=== PATIENT | female | born 1990 | race Caucasian/White ===

== ENCOUNTER 2023-08-11 09:12 | Outpatient (AMB) | payer OTHER, SELFPAY ==
--- NOTE | 2023-08-11 09:25 | AM.OFFWIN_ITS ---
Intake Vital Signs 08/11/23 09:26 Height 5 ft Weight 149 lb 6 oz BMI 29.2 BP 142/96 H Blood Pressure Location Rt brachial Position Sitting Respiration 14 Pulse 117 H Pulse Source Pulse Oximeter Temp 97.8 F Temp Source Temporal Artery Scan Pulse Oximetry (%) 99 Intake Visit Reasons: High blood pressure Intake Note: Patient would like a script for lebatalol. Patient Tobacco Use Status: Never used Tobacco Nursing Home Admissions Director Required: No Accompanied by: Self / Same As Patient Allergies No Known Allergies Allergy (Verified 08/11/23 10:00) Medication List - Last Reconciled 08/11/23 by Joanie Arriaga, [employer] dextroamphetamine-amphetamine 30 mg 1 tab PO TID labetalol 100 mg PO BID Do you need a note to return to daycare/school/sports/work: No HPI HPI Comments History of Present Illness Details 33 y/o F pre-eclampsia w/ intermediate designer HTN Walk-in visit today for medication refills. Reports that she had a change in her insurance and has been out of care for a few months. She was maintained on labetalol 100 mg p.o. b.i.d. after the of her last child due to hypertension. She has been without this for 2-3 weeks. She has complaining of a headache and a whooshing sound in her ears. She denies any chest pain or swelling in her lower extremities. Does plan to become again in the future. No immediate plans. She also has been without her Adderall. She is taking very high doses of Adderall 30 mg t.i.d.. 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 social stressors - 2 small children, one with autism, going through seperation Plan Continue on labetalol 100 mg p.o. b.i.d. at this time. Could consider changing her medications to include something like clonidine which can help her mood as well as better control her blood pressure if she does not plan to become soon. Although she does have immediate plans to become labetalol would be the best choice for her at this time. In regards to her ADHD she does have a visit to establish care with me next week as a primary care patient. I did advise to her that her Adderall 30 mg t.i.d. was an extremely high dose and above the recommended amount. This will need to be reviewed. I have given her a one-month supply. I will refer her to the bridge program at the next office visit along with counseling. [facility] Social History Patient Tobacco Use Status: Never used Tobacco Review of Systems Const All systems reviewed & are unremarkable except as noted in HPI and below Physical Exam Vital Signs: Last Vital Signs Temp 97.8 F 08/11/23 09:26 Pulse 117 H 08/11/23 09:26 Resp 14 08/11/23 09:26 BP 142/96 H 08/11/23 09:26 Pulse Ox 99 08/11/23 09:26 BMI result Body Mass Index 29.2 Const Other: awake alert PERRLA MMM RRR LS CTAB No edema BLE Assessment & Plan Assessment & Plan (1) ADHD: Code(s): F90.9 - Attention-deficit hyperactivity disorder, unspecified type Qualifiers: Attention deficit-hyperactivity disorder type: predominantly inattentive Qualified Code(s): F90.0 - Attention-deficit hyperactivity disorder, predominantly inattentive type (2) HTN (hypertension): Code(s): I10 - Essential (primary) hypertension Qualifiers: Hypertension type: primary hypertension Qualified Code(s): I10 - Essential (primary) hypertension Plan This note is constructed using voice recognition software. While every effort has been made to ensure accuracy in insurance sales executive, still errors may have been included Sometimes, these errors may affect the content or meaning of the given sentence . Total time spent caring for the patient today was 30 minutes. This includes time spent before the visit reviewing the chart, time spent during the visit, and time spent after the visit on documentation Medications: New labetalol 100 mg PO BID 60 tabs 0RF dextroamphetamine-amphetamine 30 mg 1 tab PO TID 90 tabs 0RF Patient Instructions: Plan Continue on labetalol 100 mg p.o. b.i.d. at this time. Could consider changing her medications to include something like clonidine which can help her mood as well as better control her blood pressure if she does not plan to become soon. Although she does have immediate plans to become labetalol would be the best choice for her at this time. In regards to her ADHD she does have a visit to establish care with me next week as a primary care patient. I did advise to her that her Adderall 30 mg t.i.d. was an extremely high dose and above the recommended amount. This will need to be reviewed. I have given her a one-month supply. I will refer her to the bridge program at the next office visit along with counseling. Coding Level of Care Code New Pt Level 3 (92226) Diagnoses Attention deficit hyperactivity disorder (ADHD), predominantly inattentive type F90.0 Attention deficit-hyperactivity disorder type: predominantly inattentive Primary hypertension I10 Hypertension type: primary hypertension
[2023-08-11 09:26] VITALS: BP 142/96; PULSE 117; RESP 14; TEMP 36.6; O2SAT 99; BMI 29.2
== END 2023-08-11 11:02 | disposition home or self-care (01) ==
PROVIDERS: Visit Provider Nurse Practitioner Family
DX: F90.0 Attention-deficit hyperactivity disorder, predominantly inattentive type (principal); I10 Essential (primary) hypertension
CPT/HCPCS: 99203

== ENCOUNTER 2023-08-16 11:53 | Outpatient (AMB) | payer OTHER, SELFPAY ==
--- NOTE | 2023-08-16 12:10 | A.OFFPC_ITS ---
Vital Signs 08/16/23 12:13 Height 4 ft 10.9 in Weight 150 lb 3 oz BMI 30.4 BP 118/88 Blood Pressure Location Lt brachial Position Sitting Pulse 72 Pulse Source Pulse Oximeter Temp 98.7 F Temp Source Oral Pulse Oximetry (%) 99 Oxygen Delivery Method Room Air Intake Visit Reasons: Establish Care Intake Note: New patient visit [place] [place] Manager Required: No Allergies No Known Allergies Allergy (Verified 08/16/23 12:10) Medication List - Last Reconciled 08/16/23 by Joanie Arriaga, TEXTILE PIN WORKER- dextroamphetamine-amphetamine 30 mg 1 tab PO TID labetalol 100 mg PO BID Tobacco use date assessed: 08/16/23 Dental Screening Dental Screen Date: 08/16/23 Did you have a dental visit in the last 12 months?: Yes Did you have a dental problem in the last 6 months where you did not have access to dental care?: No Was dental information given to patient?: Patient has dentist HPI HPI Comments History of Present Illness Details 33 y/o 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 Here today to establish care. Chronic condition of hypertension is currently well controlled on labetalol. Blood pressure is at goal. Denies any cardiac complaints. Continue labetalol 100 mg p.o. b.i.d. Overall she has generalized anxiety with some mixed depression in the setting of going through a separation. She has appt with advocate tomorrow for abuse prevention/harassment order. She does feel safe at the current time. Is not in counseling at this time. Did do counseling in the past. Willing to pursue. Referral today to [facility] Has not bought any in any medications to help her anxiety or depression in the past. She is willing to entertain this. Start Wellbutrin XL 150 mg p.o. daily. The goal of this would be to help control her anxiety, depression as well as her ADHD. Titrate to effect. In regards to her ADHD she is currently maintained on Adderall 30 mg p.o. t.i.d.. This came from her previous PCP. She was educated at the last visit as well as today that this exceed the maximum daily limit of 60 mg per day. The goal will be to titrate her down we will continue to manage her symptoms. Start Adderall XL 30 mg take 2 tablets p.o. daily. Adderall IR 10 mg p.o. daily p.r.n. for breakthrough symptoms. Finally she complains of a painless, non itchy lesion on her anus. Has been present for at least 3 months. There has been no home treatments. Admits some constipation but this is mild and without bleeding. Refer to general surgery for removal of hemorrhoid. Can not remember her last period and is requesting her urine test. This was negative today. Also requesting screening labs. These labs were done and reviewed today and within normal limits. Plan Refer to general surgery for evaluation and treatment of external hemorrhoid Start bupropion XL 150 mg p.o. q.day to help with anxiety and ADHD. Refer to counseling Cont labetolol Start Adderall XL 30 mg take 2 tablets p.o. daily. Adderall IR 10 mg p.o. daily p.r.n. for breakthrough symptoms. Return to office in 6 weeks to follow up on labs and to assess effectiveness of med changes [facility] Medical History Depression Anxiety Headache Thyroid disease Diabetes Family History Mother Substance use FH: mental illness HTN (hypertension) Hypercholesteremia Thyroid disorder Alcoholism Sister Substance use FH: mental illness Father HTN (hypertension) Alcoholism Paternal Grandmother Lung cancer Social History Housing: House Patient Tobacco Use Status: Never used Tobacco e-Cigarette/Vaping Use: Never Used Second Hand Smoke Exposure: No service: Yes Current occupational status: employed 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 1. Little interest or pleasure in doing things: several days 2. Feeling down, depressed, or hopeless: several days 3. Trouble falling or staying asleep, or sleeping too much: not at all 4. Feeling tired or having little energy: more than half the days 5. Poor appetite or overeating: not at all 6. Feeling bad about yourself - or that you are a failure or have let yourself or your family down: not at all 7. Trouble concentrating on things, such as reading the newspaper or watching television: not at all 8. Moving or speaking so slowly that other people could have noticed. Or the opposite - being so fidgety or restless that you have been moving around a lot more than usual: not at all 9. Thoughts that you would be better off or of hurting yourself in some way: not at all Total score: 4 Depression Screening Interpretation: Positive Depression Screening Follow-up: Existing condition and New Medication prescribed Depression Screening Done: Yes 05353 - PHQ-9 Billing: Yes Source: Developed by Drs. Thompson Zamora, Jo Meneses, Casey Alford and colleagues, with an educational clinton from [employer]. Thrive Questionnaire Date Thrive assessed: 08/16/23 I am a: Patient What is your living situation today?: I have a steady place to live Within the past 12 months, did the food you bought not last and you didn't have the money to get more?: Never true Within the past 12 months, did you worry whether your food would run out before you got money to buy more?: Never true Do you have trouble paying for medicines?: No Do you have trouble getting transportation to medical appointments?: No Do you have trouble paying your heating and electricity bill?: No Do you have trouble taking care of your child, family member or friend?: No Do you have trouble with day-to-day activities such as bathing, preparing meals, shopping, managing finances, etc.?: No Are you currently unemployed and looking for a job?: No Are you interested in more education?: No Please select the resources that you would like help with: None Currently or been in a relationship where the following occur: no concerns reported THRIVE Score: 0 AUDIT C Alcohol Use Questionnaire (AUDIT-C) 1. How often do you have a drink containing alcohol?: 2-3 times a week 2. How many drinks containing alcohol do you have on a typical day when you are drinking?: 1 or 2 3. How often do you have six or more drinks on one occasion?: Never Total Score: 3 Score Reviewed/Action Taken: Yes SAROJ-7 AMB Questionnaire SAROJ-7 Date SAROJ - 7 assessed: 08/16/23 Feeling nervous, anxious, or on edge: 1 = Several days Not being able to stop or control worryin = Not at all Worrying too much about different things: 0 = Not at all Trouble relaxin = Several days Being so restless that it is hard to sit still: 1 = Several days Becoming easily annoyed or irritable: 1 = Several days Feeling afraid as if something awful might happen: 1 = Several days Total SAROJ-7 score (0-4 normal; 5-9 mild; 10-14 moderate; 15-21 severe): 5 Source: Developed by Drs. Thompson Zamora, Jo Meneses, Casey Alford and colleagues, with an educational clinton from [employer]. SAROJ-7 Assessment Billing SAROJ-7 Assessment Tool: SAROJ-7 Assessment 68683 Review of Systems Const All systems reviewed & are unremarkable except as noted in HPI and below Physical exam (Primary Care) Vital Signs: Last Vital Signs Temp 98.7 F 08/16/23 12:13 Pulse 72 08/16/23 12:13 BP 118/88 08/16/23 12:13 Pulse Ox 99 08/16/23 12:13 Oxygen Delivery Method Room Air 08/16/23 12:13 BMI result Body Mass Index 30.4 BMI Assessment/Plan discussion: High BMI High, discussed plan: lifestyle Tobacco/Smoking Status: Tobacco use Status Tobacco use date assessed 08/16/23 08/16/23 12:18 Patient Tobacco Use Status Never used Tobacco 08/16/23 12:11 e-Cigarette/Vaping Use Never Used 08/16/23 12:18 PHQ-9: PHQ-9 Score PHQ-9: Total score 4 08/16/23 12:20 Depression Screening Interpretation: Positive Depression Screening Follow-up: Existing condition and New Medication prescribed Thrive Assessment: Date of Thrive Assessment Date Thrive assessed 08/16/23 08/16/23 12:18 Currently or been in a relationship where the following occur: no concerns reported Const Other: Awake alert oriented Pleasant and cooperative Regular rate and rhythm Lung sounds clear to auscultation bilat 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 Non thrombosed external hemorrhoid No edema bilateral lower extremities Assessment and Plan Assessment & Plan (1) SAROJ (generalized anxiety disorder): Code(s): F41.1 - Generalized anxiety disorder (2) ADHD: Code(s): F90.9 - Attention-deficit hyperactivity disorder, unspecified type Qualifiers: Attention deficit-hyperactivity disorder type: predominantly inattentive Qualified Code(s): F90.0 - Attention-deficit hyperactivity disorder, predominantly inattentive type (3) HTN (hypertension): Code(s): I10 - Essential (primary) hypertension Qualifiers: Hypertension type: primary hypertension Qualified Code(s): I10 - Essential (primary) hypertension (4) Amenorrhea: Code(s): N91.2 - Amenorrhea, unspecified (5) Hemorrhoid: Code(s): K64.9 - Unspecified hemorrhoids Qualifiers: Hemorrhoid type: first degree Qualified Code(s): K64.0 - First degree hemorrhoids (6) Obesity (BMI 30.0-34.9): Code(s): E66.9 - Obesity, unspecified Plan This note is constructed using voice recognition software. While every effort has been made to ensure accuracy in flight test supervisor, still errors may have been included Sometimes, these errors may affect the content or meaning of the given sentence . Total time spent caring for the patient today was 45 minutes. This includes time spent before the visit reviewing the chart, time spent during the visit, and time spent after the visit on documentation Orders: Orders Comprehensive Met. Panel Today F90.0 - Attention-deficit hyperactivity disorder, predominantly inattentive type, I10 - Essential (primary) hypertension, N91.2 - Amenorrhea, unspecified Hemoglobin A1c Today F90.0 - Attention-deficit hyperactivity disorder, predominantly inattentive type, I10 - Essential (primary) hypertension, N91.2 - Amenorrhea, unspecified LDL Cholesterol Direct Today F90.0 - Attention-deficit hyperactivity disorder, predominantly inattentive type, I10 - Essential (primary) hypertension, N91.2 - Amenorrhea, unspecified TSH reflex Free T4 Today F90.0 - Attention-deficit hyperactivity disorder, predominantly inattentive type, I10 - Essential (primary) hypertension, N91.2 - Amenorrhea, unspecified IRON PROFILE Today F90.0 - Attention-deficit hyperactivity disorder, predominantly inattentive type, I10 - Essential (primary) hypertension, N91.2 - Amenorrhea, unspecified Vitamin B12 and Folate Today F90.0 - Attention-deficit hyperactivity disorder, predominantly inattentive type, I10 - Essential (primary) hypertension, N91.2 - Amenorrhea, unspecified Complete Blood Count no Diff Today F90.0 - Attention-deficit hyperactivity disorder, predominantly inattentive type, I10 - Essential (primary) hypertension, N91.2 - Amenorrhea, unspecified HCG Quantitative Today F90.0 - Attention-deficit hyperactivity disorder, predominantly inattentive type, I10 - Essential (primary) hypertension, N91.2 - Amenorrhea, unspecified Referrals Counseling Referral F41.1 - Generalized anxiety disorder General Surgery Referral K64.9 - Unspecified hemorrhoids Medications: New dextroamphetamine-amphetamine 30 mg ER (Adderall XR) Partial Fill upon patient request. 60 mg (2 x 30 mg) PO DAILY 60 caps 0RF bupropion HCl XL (Wellbutrin XL) 150 mg PO QAM 30 tabs 1RF dextroamphetamine-amphetamine 10 mg (Adderall) Use PRN for breakthrough ADHD sx. Partial Fill upon patient request. 10 mg PO DAILY PRN 30 tabs 0RF as directed. Discontinued dextroamphetamine-amphetamine 30 mg Discontinued Reason: Duplicate 1 tab PO TID 90 tabs 0RF Patient Instructions: Patient is aware they are being prescribed a controlled substance. They were educated that this medication does require routine monthly office visits to monitor weight, blood pressure, heart rate and to screen for any signs of abuse or misuse. They were educated that they may be subject to random pill counts and/or U tox screenings. The prescription drug monitoring program we will be monitored at each visit to further screen for signs of abuse or misuse to include filling prescriptions at other physician's offices. The patient should maintain prescription refills of the same local pharmacy and advised the provider of any changes immediately. If at any time there is a concern for abuse or misuse or if there are any signs of side effects such as elevated blood pressure, elevated heart rate or weight loss patient is made aware that this medication will be discontinued. The patient is aware of the above and is willing to proceed. Plan Refer to general surgery for evaluation and treatment of external hemorrhoid Start bupropion XL 150 mg p.o. q.day to help with anxiety and ADHD. Refer to counseling Cont labetolol Start Adderall XL 30 mg take 2 tablets p.o. daily. Adderall IR 10 mg p.o. daily p.r.n. for breakthrough symptoms. Return to office in 6 weeks to follow up on labs and to assess effectiveness of med changes Walk-In Care (Urgent Care): We Make it Easy Walk-in for urgent medical issues such as: ? Seasonal Allergies ? Insect Bites ? Cough ? Diarrhea ? Acute Asthma Attacks ? Back, Knee or Joint Pain ? Ear Infection ? Fever without a Rash ? Headaches ? Nausea ? [place] [facility], Rash or Skin Irritation ? Sore Throat ? Sports Physicals ? Vomiting Most insurances are accepted. Patients do not need to be part of the [facility] to seek care at the walk-in clinic. Locations [address] [place] [address] , [place] [address] ? [phone] [facility] Walk-In Care in [place] provides services to ages 18 and over. Open Monday-Monday: 8 a.m. to 5 p.m. and Monday: 9 a.m. to 3 p.m.* *Hours may vary due to staffing availability. To confirm Walk-In Care hours in [place], please call [phone]. [address] [place] [address] ? [phone] [facility] Walk-In Care in [place] provides services to ages 12 and over. Open Monday-Monday: 8 a.m. to 5 p.m. Hours may vary due to staffing availability. To confirm Walk-In Care hours in [place], please call [phone]. LABORATORY SERVICES: [facility] Lab ? Primary Location [address] [place] [address] Monday through Monday 6:00 AM ? 5:00 PM Monday 7:00 AM ? 11:00 AM* [phone] The [facility] Lab is centrally located near the front entrance of the [facility] for easy outpatient access. Convenient parking is provided for outpatients. *Hours may vary due to staffing availability. To confirm Laboratory hours for any location, please call [phone]. Offsite Location For your convenience, we offer offsite laboratory draw stations at the following locations: [address] [place] [address] ? [facility] [address], [address], [place] Monday through Monday 7:30 AM ? 1:00 PM* [phone] *Hours may vary due to staffing availability. To confirm Laboratory hours for any location, please call [phone]. [place] ? [facility] [address] [facility], [place] Monday through Monday 6:00 AM ? 3:30 PM* Monday 6:30 AM ? 3 PM* [phone] *Hours may vary due to staffing availability. To confirm Laboratory hours for any location, please call [phone]. [address] [facility] Monday through Monday 7:30 AM ? 4:00 PM* [phone] *Hours may vary due to staffing availability. To confirm Laboratory hours for any location, please call [phone] [place] [address] Monday through 9:00 AM ? 4:00 PM* *Hours may vary due to staffing availability. To confirm Laboratory hours for any location, please call [phone]. Appointments are not necessary. Walk-ins are welcome. Like all the departments throughout the [facility], our Lab undergoes frequent reviews to ensure the quality and accuracy of test results, and our staff takes special pride in its status as a nationally accredited facility. Patient Portal: ONE PATIENT. ONE RECORD. BETTER CARE. [facility] has a fully integrated, cutting- edge mobile electronic health information system that has revolutionized the way we care for our patients and manage our organization. This system improves communication and coordination enabling us to provide safe, higher-quality care, and an overall positive experience for staff and patients. Our first priority, as always, is to deliver the highest quality care possible. The system is running in the background supporting that priority. This portal is for all [facility] services and practices. If you are experiencing any technical difficulties with enrolling or logging into the Patient Portal please complete the [facility] Patient Portal Technical Support Form. [facility] now offers a new secure on-line interactive tool for patients to review their health information ? ?Patient Portal. This interactive web portal will enable patients and their families to take an active role in their care by providing easy, secure access to their health information via the internet. The Patient Portal provides patients with instant access to their health information, including laboratory results, medications, allergies, demographic information, visit history, and more. In addition to managing their own care, parents and health care proxies with authorized consent will appreciate the ability to access the records of those individuals for whom they provide care. Please note: if you wish to gain access (Proxy) to another patient?s portal, you will be required to come to the Medical Records Department in person at [facility]. Both the patient giving proxy access and the proxy will need to provide photo identification and complete the appropriate authorization. The Patient Portal also allows track their appointments online. The [facility] Patient Portal also saves patients time by allowing them to submit updates to their demographic and contact information prior to their visits. Portal email notifications will also alert patients to any new activity on their portal, such as test results and new appointments. In order to initially enroll in the [facility] Patient Portal, you will need to enter some required information including the following: * your [facility] Medical Record number * your personal home email address * name * date of Please note: In order to enroll in the [facility] Patient Portal, we need to have your email address on file in your electronic medical record. ?The email address needs to be specific for one person (yourself) in order for your Portal enrollment to be successful. ?You can update your email address in person with our Registration staff when you are registering for a hospital visit. ?Otherwise, you will need to come to the Health Information Management (Medical Records) Department at [facility]. ?We are open from Monday ? Monday from 7:30 a.m. ? 4:30 p.m. ?You will be required to present a photo id. Once you have successfully enrolled in the Patient Portal, you will receive a one-time user id and password for the Portal, sent to your email address. ?This will allow you to log into the Patient Portal within 99 hrs and reset your own logon id and password, and define personal security questions. ?Once your permanent login and password have been set, you can log into the [facility] Patient Portal at any time via the blue button above or from the Portal Logon button on any page of the [facility] website. [facility] encourage all of our patients to enroll in Patient Portal as it presents a valuable opportunity for patients and their families to actively participate in their care and stay healthy Welcome to [facility]. ?We look forward to working with you. Coding Level of Care Code Est Pt Level 5 (49998) Diagnoses SAROJ (generalized anxiety disorder) F41.1 Attention deficit hyperactivity disorder (ADHD), predominantly inattentive type F90.0 Attention deficit-hyperactivity disorder type: predominantly inattentive Primary hypertension I10 Hypertension type: primary hypertension Amenorrhea N91.2 Grade I hemorrhoids K64.0 Hemorrhoid type: first degree Obesity (BMI 30.0-34.9) E66.9 Additional Codes SAROJ-7 Assessment Billing - SAROJ-7 Assessment Tool: SAROJ-7 Assessment 19182 ([id number])
[2023-08-16 12:13] VITALS: BP 118/88; PULSE 72; TEMP 37.1; O2SAT 99; BMI 30.4
== END 2023-08-16 13:00 | disposition home or self-care (01) ==
PROVIDERS: Visit Provider Nurse Practitioner Family
DX: I10 Essential (primary) hypertension (principal); F41.1 Generalized anxiety disorder; Z68.30 Body mass index [BMI] 30.0-30.9, adult; E66.9 Obesity, unspecified; F90.0 Attention-deficit hyperactivity disorder, predominantly inattentive type; N91.2 Amenorrhea, unspecified; K64.0 First degree hemorrhoids
CPT/HCPCS: 96127; 99215

== ENCOUNTER 2023-08-16 12:50 | Outpatient (REF) | payer OTHER, SELFPAY ==
[2023-08-16 13:56] LABS: Hematocrit 38.5 % (37.0-47.0); Hemoglobin 12.9 g/dl (12.0-16.0); Mean Corpuscular HGB Conc 33.5 g/dl (31.0-35.0); Mean Corpuscular Hemoglobin 30.4 pg (27.0-33.0); Mean Corpuscular Volume 90.8 fL (80.0-98.0); Mean Platelet Volume 10.2 fL (9.4-12.3); Platelet Count 334 X10*3/uL (160-400); Red Blood Count 4.24 X10*6/uL (4.20-5.50); Red Cell Distribution Width 13.2 % (11.0-16.0); White Blood Count 9.1 X10*3/uL (4.8-10.8)
[2023-08-16 14:03] LABS: Estimated Average Glucose 103 mg/dL; Hemoglobin A1c % 5.2 % (<6.0)
[2023-08-16 14:25] LABS: Alanine Aminotransferase 31 U/L (0-31); Albumin Level 4.3 g/dL (3.5-5.0); Alkaline Phosphatase 60 U/L (39-117); Anion Gap 8 (12-20); Aspartate Amino Transferase 18 U/L (5-31); Bilirubin Total 0.2 mg/dL (0.0-1.0); Blood Urea Nitrogen 10 mg/dL (9-16); Calcium 9.5 mg/dL (8.4-10.2); Carbon Dioxide 29 mmol/L (22-29); Chloride 107 mmol/L (96-108); Estimated Glomerular Filt Rate > 60; Glucose Random 83 mg/dL (60-115); Iron 67 mcg/dL (30-160); Percent Iron Saturation 22 % (15-50); Potassium 3.8 mmol/L (3.3-5.1); Sodium 140 mmol/L (135-145); Total Iron Binding Capacity 299 mcg/dL (228-428); Total Protein 7.2 g/dL (6.5-8.0); Unsaturated Iron Binding 232 ug/dL
[2023-08-16 14:39] LABS: HCG Quantitative < 2 mIU/mL; TSH reflex Free T4 1.39 uIU/mL (0.32-4.0)
[2023-08-16 14:53] LABS: Folate 10.6 ng/mL (> or = 4.0); Vitamin B12 492 pg/mL (200-900)
[2023-08-17 13:43] LABS: LDL Cholesterol Direct 116 mg/dL (<100)
== END 2023-08-16 12:51 | disposition home or self-care (01) ==
LOC: HO.WFDLDS 12:50
PROVIDERS: Visit Provider Nurse Practitioner Family
DX: I10 Essential (primary) hypertension (principal); F90.0 Attention-deficit hyperactivity disorder, predominantly inattentive type; N91.2 Amenorrhea, unspecified
CPT/HCPCS: 36415; 80053; 82607; 82746; 83036; 83540; 83721; 84443; 84702; 85027

== ENCOUNTER 2023-09-08 09:44 | Outpatient (AMB) | payer OTHER, SELFPAY ==
--- NOTE | 2023-09-08 09:46 | MHC.OFFVIS ---
Vital Signs 09/08/23 09:58 Height 5 ft Weight 153 lb BMI 29.9 Pulse 80 Intake Visit Reasons: Hemorrhoids Intake Note: Patient is seen in office for evaluation and treatment of hemorrhoids. 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 She reports the hemorrhoid started followed the delivery of her child in 2019. Since this time she has felt a lump with occasional bleeding and discomfort which seems to worsen with constipation. She is used [id number] hemorrhoidal creams and witch with minimal improvement. She has also been on a stool softener which does seem to help. She denies a previous history of hemorrhoidal surgery. She would like to have the hemorrhoids removed because they are causing discomfort. [facility] Medical History Depression Anxiety Headache Thyroid disease Diabetes Surgical History H/O dilation and curettage (~2016) Family History Mother Substance use FH: mental illness HTN (hypertension) Hypercholesteremia Thyroid disorder Alcoholism Sister Substance use FH: mental illness Father HTN (hypertension) Alcoholism Paternal Grandmother Lung cancer Social History Housing: House Patient Tobacco Use Status: Never used Tobacco e-Cigarette/Vaping Use: Never Used Second Hand Smoke Exposure: No service: Yes Current occupational status: employed 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 Current occupational exposures/hazards: Yes Cognitive needs: No Hearing needs: No Vision needs: Yes (contacts) Review of Systems Const All systems reviewed & are unremarkable except as noted in HPI and below Physical Exam Vital Signs: Last Vital Signs Pulse 80 09/08/23 09:58 BMI result Body Mass Index 29.9 Const General: cooperative and no acute distress Nutritional Appearance: well nourished Orientation/consciousness: patient oriented x3 Limitations: no limitations HEENT Head: Yes normocephalic and Yes atraumatic Ears: hearing grossly normal bilaterally Resp Effort & Inspection: normal respiratory effort, no audible wheezes, no cough and no respiratory distress Cardio Jugular venous distension: no JVD GI Inspection: Yes normal to inspection Back/Spine/Pelvis Back/spine/pelvis image: 1. anterior hemorrhoid noted with several prolapsing internal hemorrhoids at the 6, 9 and 3 o'clock location. Skin Other: Warm, dry, no rash Neuro General: patient oriented x3 Extrem General: Yes no clubbing, cyanosis or edema Assessment & Plan Assessment & Plan (1) Hemorrhoid: Code(s): K64.9 - Unspecified hemorrhoids Category: Medical Qualifiers: Hemorrhoid type: first degree Qualified Code(s): K64.0 - First degree hemorrhoids Plan 33-year-old female patient presenting for evaluation of persistent hemorrhoid which not respond to [id number]-fwv-reoebah agents. On examination, she is found to have an external skin tag but also several prolapsing internal hemorrhoids (grade 2-3). There is no evidence of bleeding at this time. She is requested hemorrhoidectomy and after discussion of the procedure, risks, and alternatives including the possibility of recurrent hemorrhoids, she consents to the surgery. Medications: Discontinued bupropion HCl XL (Wellbutrin XL) Discontinued Reason: Patient no longer taking 150 mg PO QAM 30 tabs 1RF Coding Level of Care Code New Pt Level 4 (86330) Diagnoses Grade I hemorrhoids K64.0 Hemorrhoid type: first degree
[2023-09-08 09:58] VITALS: PULSE 80; BMI 29.9
== END 2023-09-08 10:23 | disposition home or self-care (01) ==
PROVIDERS: PCP Nurse Practitioner Family; Referring Provider Nurse Practitioner Family; Visit Provider Surgery
DX: K64.2 Third degree hemorrhoids (principal)
CPT/HCPCS: 99204

== ENCOUNTER → 2023-09-08 09:44 | Outpatient (BNVA) | payer OTHER, SELFPAY | PROVIDERS: PCP Nurse Practitioner Family; Referring Provider Nurse Practitioner Family; Visit Provider Surgery | DX: K64.0 First degree hemorrhoids (principal) | CPT/HCPCS: 99202 ==

== ENCOUNTER 2023-09-29 09:15 | Outpatient (AMB) | payer OTHER, SELFPAY ==
--- NOTE | 2023-09-29 09:33 | MHC.OFFWIV ---
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 Start Wellbutrin XL 150 mg p.o. daily. The goal of this would be to help control her anxiety, depression as well as her ADHD. Titrate to effect. tart Adderall XL 30 mg take 2 tablets p.o. daily. Adderall IR 10 mg p.o. daily p.r.n. for breakthrough symptoms. 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 Non thrombosed external hemorrhoid No edema bilateral lower extremities Plan Refer to general surgery for evaluation and treatment of external hemorrhoid Start bupropion XL 150 mg p.o. q.day to help with anxiety and ADHD. Refer to counseling Cont labetolol Start Adderall XL 30 mg take 2 tablets p.o. daily. Adderall IR 10 mg p.o. daily p.r.n. for breakthrough symptoms. Return to office in 6 weeks to follow up on labs and to assess effectiveness of med changes [facility] Medical History Depression Anxiety Headache Thyroid disease Diabetes Surgical History H/O dilation and curettage (~2017) Family History Mother Substance use FH: mental illness HTN (hypertension) Hypercholesteremia Thyroid disorder Alcoholism Sister Substance use FH: mental illness Father HTN (hypertension) Alcoholism Paternal Grandmother Lung cancer Social History Housing: House Patient Tobacco Use Status: Never used Tobacco e-Cigarette/Vaping Use: Never Used Second Hand Smoke Exposure: No service: Yes Current occupational status: employed 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
[2023-09-29 09:37] VITALS: BP 140/90; PULSE 64; O2SAT 98; BMI 29.3
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
== END 2023-09-29 10:21 | disposition home or self-care (01) ==
PROVIDERS: PCP Nurse Practitioner Family; Visit Provider Nurse Practitioner Family
DX: I10 Essential (primary) hypertension (principal); F90.0 Attention-deficit hyperactivity disorder, predominantly inattentive type; Z02.83 Encounter for blood-alcohol and blood-drug test; F41.1 Generalized anxiety disorder
CPT/HCPCS: 99215; 99417; G2211

== ENCOUNTER 2023-09-29 10:41 | Outpatient (REF) | payer OTHER, SELFPAY ==
[2023-09-29 14:31] LABS: Amphetamine Screen Urine POSITIVE (Not Detect); Barbiturates, Urine Not Detected (Not Detect); Benzodiazepines Screen Urine Not Detected (Not Detect); Buprenorphine Scr Not Detected (Not Detect); Cannabinoid Screen Urine Not Detected (Not Detect); Cocaine Screen Urine Not Detected (Not Detect); Fentanyl, urine Not Detected (Not Detect); Methadone Screen, Urine Not Detected (Not Detect); Opiate Screen Urine Not Detected (Not Detect); Oxycodone Screen Urine Not Detected (Not Detect); Phencyclidine Screen Urine Not Detected (Not Detect)
[2023-10-02 15:11] LABS: Methamphetamine, Urine GC/MS NEGATIVE
== END 2023-09-29 10:42 | disposition home or self-care (01) ==
LOC: HO.WFDLDS 10:41
PROVIDERS: Visit Provider Nurse Practitioner Family
DX: Z02.83 Encounter for blood-alcohol and blood-drug test (principal); F90.0 Attention-deficit hyperactivity disorder, predominantly inattentive type
CPT/HCPCS: 80307; 80324; G0480

== ENCOUNTER 2023-11-10 08:26 | Outpatient (AMB) | payer OTHER, SELFPAY ==
--- NOTE | 2023-11-10 08:29 | A.OFFPC_ITS ---
Vital Signs 11/10/23 08:31 Height 5 ft Weight 147 lb 4 oz BMI 28.8 BP 138/78 Blood Pressure Location Rt brachial Position Sitting Respiration 15 Pulse 75 Pulse Source Pulse Oximeter Pulse Oximetry (%) 100 Oxygen Delivery Method Room Air Intake Visit Reasons: 6 WEEKS 30 MIN FU HTN ADHD Intake Note: routine follow up on htn and adhd Allergies No Known Allergies Allergy (Verified 11/10/23 08:31) Medication List - Last Reconciled 11/10/23 by YEN PaezP-BC dextroamphetamine-amphetamine 10 mg (Adderall) 10 mg PO DAILY PRN dextroamphetamine-amphetamine 30 mg ER (Adderall XR) 60 mg (2 x 30 mg) PO DAILY labetalol 150 mg (1.5 x 100 mg) PO BID 90 days Tobacco use date assessed: 08/16/23 Dental Screening Dental Screen Date: 08/16/23 HPI HPI Comments History of Present Illness Details 33 y/o F pre-eclampsia w/ emt intermediate HTN, ADHD, SAROJ Social: has son with autism, 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 Here today to fu on ADHD and HTN HTN is improved, 140-155 SBP in the evening, 120-130 in the morning. Currently taking labetolol 200mg in the AM, 100mg before work and 100mg at be dtime but if not working taking 200mg at bedtime total daily dose 400mg Denies chest pain, sob, swelling in lower ext. Denies palps. Knows BP is high when she gets a headache and hears and feels wooshes, flushed and warm. Sometimes has blurred vision. Reports these episodes are occurring less often after the medication increase, it was QD before this. Had renal US in the past but has never had an Echo. Was on lisinopril 2.5 mg post (1-2 years after of son) with + effect. Not in current relationship, not on control. Got on OCP & IUD. Feels lousy on control, declines today. Will be starting counseling 11/22/23 @ [facility] Counseling ADHD - never did start the XL, stating it was never avail. [employer] does not show claim hx for this. She cont to take IR 30mg TID. She was advised to call all the pharmacies to see if they had this medication. She reports that local pharmacies do not have the extended release version of Adderall. Reviewed with her today the difficulties in prescribe his medications. Medication has been sent to the wrong pharmacy. Request for prior authorization several times even though the prior authorization were active. Medication unavailability. And finally the high dose of Adderall. Discuss this with her at length today. She is willing to have a consultation with the adult bridge program for medication management to see if we can optimize her medication and get her on a lower dose of stimulants all well controlled her ADHD symptoms. 08/2023 PCP records from [facility] reviewed, only note is she was on losartan in the past; she was on ativan and trazadone; has tried ritalin w/o effect. psych consult rec reduce adderal to60mg from 90mg and refer back to psych if tachy or HTN Exam: Awake alert oriented Pleasant and cooperative Regular rate and rhythm Lung sounds clear to auscultation bilat No edema bilateral lower extremities Plan Refer to the adult bridge program for help with further prescribing of her ADHD medications. At this time discontinue the Adderall 30 mg ER as it is not available and she has had lots of insurance barriers to even getting the medication. I have sent in Adderall immediate release 20 mg PO TID. I am aware that this is a high dose. She has been maintained on a very high dose of Adderall. Consultation with the outpatient bridge program we will be a ppreciated to help get her down to a lower dose. Check an echocardiogram to look for hypertensive heart disease given her uncontrolled blood pressure. Her blood pressure is controlled with the use of labetalol 200 mg 2 times per day, can titrate to a daily max of 2400mg/day. Once again holding off on adding a medications for her blood pressure as she does plan to conceive in the future. I would like to see her back in 1 month for routine follow up, sooner as needed. I did advise her that if she is being followed by the adult bridge program for the consultative services we can potentially move this visit out a little bit. This note is constructed using voice recognition software. While every effort has been made to ensure accuracy in software technical lead, still errors may have been included Sometimes, these errors may affect the content or meaning of the given sentence . Total time spent caring for the patient today was 45 minutes. This includes time spent before the visit reviewing the chart, time spent during the visit, and time spent after the visit on documentation [facility] Medical History (Updated 10/02/23 @ 07:42 by Joanie Arriaga [facility]) Depression Anxiety Headache Thyroid disease Surgical History H/O dilation and curettage (~2017) Family History Mother Substance use FH: mental illness HTN (hypertension) Hypercholesteremia Thyroid disorder Alcoholism Sister Substance use FH: mental illness Father HTN (hypertension) Alcoholism Paternal Grandmother Lung cancer Social History Housing: House Patient Tobacco Use Status: Never used Tobacco e-Cigarette/Vaping Use: Never Used Second Hand Smoke Exposure: No service: Yes Current occupational status: employed 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 1. Little interest or pleasure in doing things: several days 2. Feeling down, depressed, or hopeless: several days 3. Trouble falling or staying asleep, or sleeping too much: several days 4. Feeling tired or having little energy: several days 5. Poor appetite or overeating: more than half the days 6. Feeling bad about yourself - or that you are a failure or have let yourself or your family down: several days 7. Trouble concentrating on things, such as reading the newspaper or watching television: several days 8. Moving or speaking so slowly that other people could have noticed. Or the opposite - being so fidgety or restless that you have been moving around a lot more than usual: not at all 9. Thoughts that you would be better off or of hurting yourself in some way: not at all Total score: 8 [id number] - PHQ-9 Billing: Yes Source: Developed by Drs. Thompson Zamroa, Casey Villa and colleagues, with an educational clinton from [employer]. Thrive Questionnaire Date Thrive assessed: 11/10/23 I am a: Patient What is your living situation today?: I have a steady place to live Within the past 12 months, did the food you bought not last and you didn't have the money to get more?: Never true Within the past 12 months, did you worry whether your food would run out before you got money to buy more?: Never true Do you have trouble paying for medicines?: No Do you have trouble getting transportation to medical appointments?: No Do you have trouble paying your heating and electricity bill?: No Do you have trouble taking care of your child, family member or friend?: No Do you have trouble with day-to-day activities such as bathing, preparing meals, shopping, managing finances, etc.?: No Are you currently unemployed and looking for a job?: No Are you interested in more education?: Yes Please select the resources that you would like help with: Education THRIVE Score: 0 AUDIT C Alcohol Use Questionnaire (AUDIT-C) 2. How many drinks containing alcohol do you have on a typical day when you are drinking?: 1 or 2 3. How often do you have six or more drinks on one occasion?: Never Total Score: 0 SAROJ-7 AMB Questionnaire SAROJ-7 Date SAROJ - 7 assessed: 11/10/23 Feeling nervous, anxious, or on edge: 1 = Several days Not being able to stop or control worryin = Several days Worrying too much about different things: 1 = Several days Trouble relaxin = More than half the days Being so restless that it is hard to sit still: 2 = More than half the days Becoming easily annoyed or irritable: 1 = Several days Feeling afraid as if something awful might happen: 1 = Several days Total SAROJ-7 score (0-4 normal; 5-9 mild; 10-14 moderate; 15-21 severe): 9 Source: Developed by Jo Castellanos Kurt Kroenke and colleagues, with an educational clinton from [employer]. SAROJ-7 Assessment Billing SAROJ-7 Assessment Tool: SAROJ-7 Assessment 87140 Physical exam (Primary Care) Vital Signs: Last Vital Signs Pulse 75 11/10/23 08:31 Resp 15 11/10/23 08:31 BP 138/78 11/10/23 08:31 Pulse Ox 100 11/10/23 08:31 Oxygen Delivery Method Room Air 11/10/23 08:31 BMI result Body Mass Index 28.8 Tobacco/Smoking Status: Tobacco use Status Tobacco use date assessed 08/16/23 11/10/23 08:30 Patient Tobacco Use Status Never used Tobacco 11/10/23 08:30 e-Cigarette/Vaping Use Never Used 11/10/23 08:30 PHQ-9: PHQ-9 Score PHQ-9: Total score 8 11/10/23 09:00 Thrive Assessment: Date of Thrive Assessment Date Thrive assessed 11/10/23 11/10/23 08:37 Assessment and Plan Assessment & Plan (1) HTN (hypertension): Code(s): I10 - Essential (primary) hypertension Qualifiers: Hypertension type: primary hypertension Qualified Code(s): I10 - Essential (primary) hypertension (2) ADHD: Code(s): F90.9 - Attention-deficit hyperactivity disorder, unspecified type Qualifiers: Attention deficit-hyperactivity disorder type: predominantly inattentive Qualified Code(s): F90.0 - Attention-deficit hyperactivity disorder, predominan tly inattentive type (3) SAROJ (generalized anxiety disorder): Code(s): F41.1 - Generalized anxiety disorder Orders: Orders CA echo transthoracic complete Today I10 - Essential (primary) hypertension Referrals Psychiatry Outpatient Consultation Service F41.1 - Generalized anxiety disorder, F90.0 - Attention-deficit hyperactivity disorder, predominantly inattentive type Medications: New dextroamphetamine-amphetamine 20 mg (Adderall) Partial Fill upon patient request. 20 mg PO TID 90 tabs 0RF Discontinued dextroamphetamine-amphetamine 30 mg ER (Adderall XR) Partial Fill upon patient request. Discontinued Reason: Insurance Denied 60 mg (2 x 30 mg) PO DAILY 60 caps 0RF Patient Instructions: Try [facility] or [facility] to see if they accept your insurance and can help you Coding Level of Care Code Est Pt Level 5 (29840) Complex EM visit Add On G2211 Diagnoses Primary hypertension I10 Hypertension type: primary hypertension Attention deficit hyperactivity disorder (ADHD), predominantly inattentive type F90.0 Attention deficit-hyperactivity disorder type: predominantly inattentive SAROJ (generalized anxiety disorder) F41.1 Additional Codes SAROJ-7 Assessment Billing - SAROJ-7 Assessment Tool: SAROJ-7 Assessment [id number] ([id number])
[2023-11-10 08:31] VITALS: BP 138/78; PULSE 75; RESP 15; O2SAT 100; BMI 28.8
== END 2023-11-10 09:25 | disposition home or self-care (01) ==
PROVIDERS: PCP Nurse Practitioner Family; Visit Provider Nurse Practitioner Family
DX: I10 Essential (primary) hypertension (principal); F90.0 Attention-deficit hyperactivity disorder, predominantly inattentive type; F41.1 Generalized anxiety disorder
CPT/HCPCS: 99215; G2211

== ENCOUNTER → 2023-11-24 08:54 | Outpatient (REF) | payer OTHER, SELFPAY ==
--- NOTE | 2023-11-24 08:59 | CA_ITS ---
Transthoracic Echocardiogram Patient (Last, First, Middle): Gabi Hinojosa, Gender: Female Date of : 1990 Age: 33 Procedure Date: 11/24/2023 Procedure Type: Transthoracic Echocardiogram Location: OP Height: 152.4 cm Weight: 66.68 kg BSA: 1.64 m2 Heart Rate: 73 bpm BP: 115 / 90 mmHg Continuous Mining Operator: MARIA ELENA Referring MD: Joanie Arriaga PICKLING OPERATOR- Symptoms: I10 - Essential (primary) hypertension Study Quality: Good ECG Rhythm: Sinus Conclusions: - The left ventricular systolic function is normal. The calculated ejection fraction is 63% by biplane method. - No obvious valvular pathology seen on this study. - Trivial to small pericardial effusion noted. Findings Left Ventricle Normal left ventricular cavity size. There is normal left ventricular wall thickness. The left ventricular systolic function is normal. The calculated ejection fraction is 63% by biplane method. There is no evidence of regional wall motion abnormalities. Diastolic function is normal for age. Right Ventricle Normal right ventricular cavity size and systolic function. Atria Both atria are normal in size. Aortic Valve There is a normal trileaflet aortic valve. There is no aortic valve stenosis. There is no aortic valve regurgitation. Mitral Valve The mitral valve appears normal. There is trace mitral valve regurgitation. There is no mitral valve stenosis. Pulmonic Valve The pulmonic valve is likely normal. Tricuspid Valve Normal tricuspid valve structure. There is trace tricuspid valve regurgitation. There is no evidence of pulmonary hypertension. Great Vessels The asc aorta is normal in size. Venous The inferior vena cava is normal in size and collapses greater than 50% with inspiration. Pericardium/Pleural Trivial to small pericardial effusion noted. Prior Study Comparison No prior study available for comparison. Recommendations, Care & Conclusions No obvious valvular pathology seen on this study. Measurements 2D Linear Measurements IVSd: 0.90 0.6-0.9/0.6-1.0 cm LVIDd: 4.76 3.9-5.3/4.2-5.9 cm LVIDd Index: 2.90 2.4-3.2/2.2-3.1 cm/m2 LVIDs: 3.19 2.0-3.6 cm LVPWd: 0.82 0.7-1.1 cm LA Diam: 3.40 2.7-3.8/3.0-4.0 cm LAIDs Index: 2.07 1.5-2.3 cm/m2 LV Mass: 171.21 67-162/88-224 g LV Mass Index: 104.40 43-95/49-115 g/m2 LVOT Diam: 1.90 3.0+(-)1.3 cm 2D Systolic Function EF 4C: 60.30 >55% EF 2C: 63.70 >55% EF BiP: 62.60 >55% Mitral Valve MV Pk E: 1.02 MV PK A: 0.56 MV Decel Time: 152.00 E/A: 1.80 E'Lateral: 15.30 E'Medial: 9.03 E/E' Med: 11.30 E/E' Lat: 6.70 PHT: 45.00 MVA PHT: 4.89 Decel [place]: 6.69 Aortic Valve AoV Pk Jeremy: 1.24 AoV Mn Jeremy: 0.86 AoV VTI: 0.28 AoV Pk Grad: 6.00 Aov Mn Grad: 3.00 MAX Cont.VTI: 1.98 LVOT LVOT Pk Jeremy: 0.91 LVOT Mn Jeremy: 0.67 LVOT VTI: 0.19 LVOT Pk Grad: 3.00 LVOT Mn Grad: 2.00 LVOT Diam: 1.90 LVOT Area: 2.84 Diastolic Function MV Pk E: 1.02 MV Pk A: 0.56 E/A: 1.80 E'Medial: 9.03 E/E' Med: 11.30 E' Laterial: 15.30 E/E' Lat: 6.70 Right Ventricle TAPSE (mm): 23.20 TVS' Jeremy: 11.40 Tricuspid Valve TR Pk Jeremy: 1.30 TR Pk Grad: 7.00 RA Press: 3.00 RVSP: 10.00 Great Vessels Aorta Sinus of Valsalva: 2.80 2.0-3.5 cm Ao Asc: 2.60 2.1-3.4 cm Pulmonary Valve PV Pk Jeremy: 1.00 Peak PV Grad: 4.00 Updated in Other Vendor System with Status of Final Anuj Gutierrez MD electronically signed on 11/25/2023 12:24:01 PM with status of Final
== END ==
LOC: HO.CARD 08:54
PROVIDERS: PCP Nurse Practitioner Family; Visit Provider Nurse Practitioner Family
DX: I10 Essential (primary) hypertension (principal)
CPT/HCPCS: 93306

== ENCOUNTER → 2023-11-24 08:59 | Outpatient (BNV) | payer OTHER, SELFPAY | PROVIDERS: PCP Nurse Practitioner Family; Visit Provider Internal Medicine | DX: I31.39 Other pericardial effusion (noninflammatory) (principal) | CPT/HCPCS: 93306 ==

== ENCOUNTER 2023-12-22 08:50 | Outpatient (AMB) | payer OTHER, SELFPAY ==
--- NOTE | 2023-12-22 07:23 | A.OFFPC_ITS ---
Vital Signs 12/22/23 08:54 12/22/23 09:13 Height 5 ft Weight 146 lb 8 oz BMI 28.6 BP 132/74 126/74 Blood Pressure Location Lt brachial Rt brachial Position Sitting Sitting Respiration 15 Pulse 64 Pulse Source Pulse Oximeter Pulse Oximetry (%) 99 Oxygen Delivery Method Room Air Intake Visit Reasons: 1 month ADHD, HTN Intake Note: follow up on adhd and htn. Patient has been out of adhd meds for 2 weeks now. 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 - wears contacts [facility][1] [facility] Here today for routine follow up of chronic conditions Since last office visit she did have her echocardiogram completed. See details of results below. Adult bridge consult scheduled 01/12/24 Cont w/ headaches and flushing even when BP is not high. Active in counseling, this is going good Separation trial is now complete. No appetite, poor sleep attributes to stress Eating only 1 meal a day Denies abd pain The anxiety is the same, no worse Mild depressive sx. Feels a lot of grief related to circumstances. Denies SI/HI. Denies negative coping. Staying busy. Mild chest pain at times, she does not feel this is anything to worry about Does have some sob at times does feel dizzy at times poor vision at baseline, wears contacts, feels vision is more blurry; has next appt in January or around there. Does have full dilated exam done Denies swelling in lower ext or syncope Exam: Awake alert oriented Pleasant and cooperative Regular rate and rhythm Lung sounds clear to auscultation bilat No edema bilateral lower extremities Plan Adult bridge program for help with further prescribing of her ADHD medications scheduled. Cont Adderral same dose, refill sent today. Refer to Cards for pericardial effusion eval and tx. Her blood pressure is controlled with the use of labetalol 200 mg 2 times per day, can titrate to a daily max of 2400mg/day. Once again holding off on adding a medications for her blood pressure as she does plan to conceive in the future. I would like to see her back in 1 month for routine follow up, sooner as needed. I did advise her that if she is being followed by the adult bridge program for the consultative services we can potentially move this visit out a little bit. This note is constructed using voice recognition software. While every effort has been made to ensure accuracy in magnet valve assembler, still errors may have been included Sometimes, these errors may affect the content or meaning of the given sentence . Total time spent caring for the patient today was 30 minutes. This includes time spent before the visit reviewing the chart, time spent during the visit, and time spent after the visit on documentation [facility] Medical History (Updated 12/22/23 @ 07:31 by Joanie Arriaga, [facility]) Depression Anxiety Headache Thyroid disease Surgical History H/O dilation and curettage (~2017) Family History Mother Substance use FH: mental illness HTN (hypertension) Hypercholesteremia Thyroid disorder Alcoholism Sister Substance use FH: mental illness Father HTN (hypertension) Alcoholism Paternal Grandmother Lung cancer Social History Housing: House Patient Tobacco Use Status: Never used Tobacco e-Cigarette/Vaping Use: Never Used Second Hand Smoke Exposure: No service: Yes Current occupational status: employed 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 61957 - PHQ-9 Billing: Patient declined-do not bill Source: Developed by Drs. Thompson Zamora, Casey Villa and colleagues, with an educational clinton from [employer]. Thrive Questionnaire Date Thrive assessed: 12/22/23 I am a: Patient What is your living situation today?: I have a steady place to live Within the past 12 months, did the food you bought not last and you didn't have the money to get more?: I choose not to answer this question Within the past 12 months, did you worry whether your food would run out before you got money to buy more?: I choose not to answer this question Do you have trouble paying for medicines?: I choose not to answer this question Do you have trouble getting transportation to medical appointments?: No Do you have trouble paying your heating and electricity bill?: No Do you have trouble taking care of your child, family member or friend?: No Do you have trouble with day-to-day activities such as bathing, preparing meals, shopping, managing finances, etc.?: I choose not to answer this question Are you currently unemployed and looking for a job?: No Are you interested in more education?: I choose not to answer this question Please select the resources that you would like help with: Food THRIVE Score: 0 AUDIT C Alcohol Use Questionnaire (AUDIT-C) 1. How often do you have a drink containing alcohol?: Monthly or less Total Score: 1 SAROJ-7 AMB Questionnaire SAROJ-7 Date SAROJ - 7 assessed: 12/22/23 Feeling nervous, anxious, or on edge: 1 = Several days Not being able to stop or control worryin = Not at all Worrying too much about different things: 1 = Several days Trouble relaxin = More than half the days Being so restless that it is hard to sit still: 2 = More than half the days Becoming easily annoyed or irritable: 1 = Several days Feeling afraid as if something awful might happen: 0 = Not at all Total SAROJ-7 score (0-4 normal; 5-9 mild; 10-14 moderate; 15-21 severe): 7 Source: Developed by Drs. Thompson Zamora, Jo Meneses, Casye Alford and colleagues, with an educational clinton from [employer]. SAROJ-7 Assessment Billing SAROJ-7 Assessment Tool: SAROJ-7 Assessment 57947 Physical exam (Primary Care) Vital Signs: Last Vital Signs Pulse 64 12/22/23 08:54 Resp 15 12/22/23 08:54 BP 132/74 12/22/23 08:54 Pulse Ox 99 12/22/23 08:54 Oxygen Delivery Method Room Air 12/22/23 08:54 BMI result Body Mass Index 28.6 Tobacco/Smoking Status: Tobacco use Status Tobacco use date assessed 08/16/23 12/22/23 07:23 Patient Tobacco Use Status Never used Tobacco 12/22/23 07:23 e-Cigarette/Vaping Use Never Used 12/22/23 07:23 Thrive Assessment: Date of Thrive Assessment Date Thrive assessed 12/22/23 12/22/23 08:56 Results Reviewed Results Reviewed: [address] [address] Cardiology Report Signed Patient: Gabi Hinojosa MR#: [id number] : 1990 Acct:[id number] Age/Sex: 33 / F ADM Date: 11/24/23 Loc: [facility] Attending Dr: Joanie RYAN Ordering Physician: Joanie Arriaga Date of Service: 11/24/23 Procedure(s): CA echo transthoracic complete Accession Number(s): cc: Joanie Arriaga~ Transthoracic Echocardiogram Patient (Last, First, Middle): Gabi Hinojosa, Gender: Female Date of : 1990 Age: 33 Procedure Date: 11/24/2023 Procedure Type: Transthoracic Echocardiogram Location: OP Height: 152.4 cm Weight: 66.68 kg BSA: 1.64 m2 Heart Rate: 73 bpm BP: 115 / 90 mmHg School Crossing Guard Supervisor: MARIA ELENA Referring MD: Joanie RYAN Symptoms: I10 - Essential (primary) hypertension Study Quality: Good ECG Rhythm: Sinus Conclusions: - The left ventricular systolic function is normal. The calculated ejection fraction is 63% by biplane method. - No obvious valvular pathology seen on this study. - Trivial to small pericardial effusion noted. Findings Left Ventricle Normal left ventricular cavity size. There is normal left ventricular wall thickness. The left ventricular systolic function is normal. The calculated ejection fraction is 63% by biplane method. There is no evidence of regional wall motion abnormalities. Diastolic function is normal for age. Right Ventricle Normal right ventricular cavity size and systolic function. Atria Both atria are normal in size. Aortic Valve There is a normal trileaflet aortic valve. There is no aortic valve stenosis. There is no aortic valve regurgitation. Mitral Valve The mitral valve appears normal. There is trace mitral valve regurgitation. There is no mitral valve stenosis. Pulmonic Valve The pulmonic valve is likely normal. Tricuspid Valve Normal tricuspid valve structure. There is trace tricuspid valve regurgitation. There is no evidence of pulmonary hypertension. Great Vessels The asc aorta is normal in size. Venous The inferior vena cava is normal in size and collapses greater than 50% with inspiration. Pericardium/Pleural Trivial to small pericardial effusion noted. Prior Study Comparison No prior study available for comparison. Recommendations, Care & Conclusions No obvious valvular pathology seen on this study. Measurements 2D Linear Measurements IVSd: 0.90 0.6-0.9/0.6-1.0 cm LVIDd: 4.76 3.9-5.3/4.2-5.9 cm LVIDd Index: 2.90 2.4-3.2/2.2-3.1 cm/m2 LVIDs: 3.19 2.0-3.6 cm LVPWd: 0.82 0.7-1.1 cm LA Diam: 3.40 2.7-3.8/3.0-4.0 cm LAIDs Index: 2.07 1.5-2.3 cm/m2 LV Mass: 171.21 67-162/88-224 g LV Mass Index: 104.40 43-95/49-115 g/m2 LVOT Diam: 1.90 3.0+(-)1.3 cm 2D Systolic Function EF 4C: 60.30 >55% EF 2C: 63.70 >55% EF BiP: 62.60 >55% Mitral Valve MV Pk E: 1.02 MV PK A: 0.56 MV Decel Time: 152.00 E/A: 1.80 E'Lateral: 15.30 E'Medial: 9.03 E/E' Med: 11.30 E/E' Lat: 6.70 PHT: 45.00 MVA PHT: 4.89 Decel Towns: 6.69 Aortic Valve AoV Pk Jeremy: 1.24 AoV Mn Jeremy: 0.86 AoV VTI: 0.28 AoV Pk Grad: 6.00 Aov Mn Grad: 3.00 MAX Cont.VTI: 1.98 LVOT LVOT Pk Jeremy: 0.91 LVOT Mn Jeremy: 0.67 LVOT VTI: 0.19 LVOT Pk Grad: 3.00 LVOT Mn Grad: 2.00 LVOT Diam: 1.90 LVOT Area: 2.84 Diastolic Function MV Pk E: 1.02 MV Pk A: 0.56 E/A: 1.80 E'Medial: 9.03 E/E' Med: 11.30 E' Laterial: 15.30 E/E' Lat: 6.70 Right Ventricle TAPSE (mm): 23.20 TVS' Jeremy: 11.40 Tricuspid Valve TR Pk Jeremy: 1.30 TR Pk Grad: 7.00 RA Press: 3.00 RVSP: 10.00 Great Vessels Aorta Sinus of Valsalva: 2.80 2.0-3.5 cm Ao Asc: 2.60 2.1-3.4 cm Pulmonary Valve PV Pk Jeremy: 1.00 Peak PV Grad: 4.00 Updated in Other Vendor System with Status of Final Coding Level of Care Code Est Pt Level 4 (96829) Complex EM visit Add On G2211 Diagnoses Pericardial effusion I31.39 Primary hypertension I10 Hypertension type: primary hypertension Attention deficit hyperactivity disorder (ADHD), predominantly inattentive type F90.0 Attention deficit-hyperactivity disorder type: predominantly inattentive SAROJ (generalized anxiety disorder) F41.1 Additional Codes SAROJ-7 Assessment Billing - SAROJ-7 Assessment Tool: SAROJ-7 Assessment 00052 ([id number]) Assessment & Plan Assessment & Plan (1) Pericardial effusion: Code(s): I31.39 - Other pericardial effusion (noninflammatory) Category: Medical Plan: . (2) HTN (hypertension): Code(s): I10 - Essential (primary) hypertension Category: Medical Qualifiers: Hypertension type: primary hypertension Qualified Code(s): I10 - Essential (primary) hypertension Plan: . (3) ADHD: Code(s): F90.9 - Attention-deficit hyperactivity disorder, unspecified type Category: Medical Qualifiers: Attention deficit-hyperactivity disorder type: predominantly inattentive Qualified Code(s): F90.0 - Attention-deficit hyperactivity disorder, predominantly inattentive type Plan: . (4) SAROJ (generalized anxiety disorder): Code(s): F41.1 - Generalized anxiety disorder Category: Medical Plan: . Orders: Referrals Cardiology Referral I10 - Essential (primary) hypertension, I31.39 - Other pericardial effusion (noninflammatory) Medications: Refilled dextroamphetamine-amphetamine 10 mg (Adderall) Use PRN for breakthrough ADHD sx. Partial Fill upon patient request. 10 mg PO DAILY PRN 30 tabs 0RF as directed. dextroamphetamine-amphetamine 20 mg (Adderall) Partial Fill upon patient request. 20 mg PO TID 90 tabs 0RF
[2023-12-22 08:54] VITALS: BP 132/74; PULSE 64; RESP 15; O2SAT 99; BMI 28.6
[2023-12-22 09:13] VITALS: BP 126/74
== END 2023-12-22 09:17 | disposition home or self-care (01) ==
PROVIDERS: PCP Nurse Practitioner Family; Visit Provider Nurse Practitioner Family
DX: I31.39 Other pericardial effusion (noninflammatory) (principal); I10 Essential (primary) hypertension; F90.0 Attention-deficit hyperactivity disorder, predominantly inattentive type; F41.1 Generalized anxiety disorder

== ENCOUNTER → 2023-12-22 08:50 | Outpatient (BNVA) | payer OTHER, SELFPAY | PROVIDERS: PCP Nurse Practitioner Family; Visit Provider Nurse Practitioner Family | DX: I31.39 Other pericardial effusion (noninflammatory) (principal); I10 Essential (primary) hypertension; F90.0 Attention-deficit hyperactivity disorder, predominantly inattentive type; F41.1 Generalized anxiety disorder | CPT/HCPCS: 96127; 99212 ==

== ENCOUNTER 2024-01-12 10:55 | Outpatient (AMB) | payer OTHER, SELFPAY ==
--- NOTE | 2024-01-12 11:09 | A.OFFPSYCH_ITS ---
Intake Intake Visit Reasons: new consultation Corporate Development Intern Required: No Allergies No Known Allergies Allergy (Verified 12/22/23 08:54) Medication List - Last Reconciled 01/12/24 by Ashlyn Clayton, M[facility]ISYN dextroamphetamine-amphetamine 10 mg (Adderall) 10 mg PO BID PRN dextroamphetamine-amphetamine 20 mg (Adderall) 20 mg PO TID labetalol 150 mg (1.5 x 100 mg) PO BID 90 days HPI- Psychiatric Chief Complaint: new consultation HPI Narrative: Pt referred by PCP for evaluation of ADHD and medication. Pt diagnosed with ADHD at age 17 by outpatient provider Heide Calderon. Pt was having difficutly with focus, attention, finishing projects, tasks and shifting her attention when needed; she struggled with over-focus at times. She would easily get distracted or off task when she would be interrupted. she was easily overstimulated by noise and activity around her. she was started on adderall and dose was titrated up to 30mg TID of Adderal IR. She reports she did well on the 30mg tid since age 18. When Heide Calderon retired patient saw a series of new providers. She recently started with new PCP who wanted her to get a consultation re: treatment as the dose is above the FDA maximum of 60mg daily. Pt also has HTN since having pre-eclampsia since being . She has had episodic high blood pressure since. She is on labetalol 200mg BID. she recently had echocardiogram which showed minor pericardial effusion. she has a consult with cardiology pending. Pt has tried a number of alternatives to adderall IR. she has tried ritalin, concerta, vyvanse, wellbutrin, prozac, abilify, all of which were not helpful or caused side effects. Pt has therapy weekly with [facility]. 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 She has high demands on her in terms of attention, focus, executive functioning. Pt denies substance or alcohol use; no history of abusing substances. Past Psychiatric History: outpt treatment since age 17. no IPLOC Subjective Subjective Subjective Medication Compliance: Yes Side effects from medications: No Review of Systems Medical Review of Systems: unchanged Mental Status Exam Mental Status Exam Patient Appearance: Well Grooomed and Appropriate Patient Orientation: Person, Place, Time and Situation Level of Consciousness: Awake and Appropriate Patient Behavior: Appropriate and Guarded Mood Description: Calm Affect Description: Calm Patient Cognition Impaired: No Ability to Follow Directions: Good Speech Pattern: Clear and Appropriate Memory Description: Intact Hallucinations: None Delusions: Not Present Thought Process: Intact and Goal Oriented Thought Content: positive for Intact and positive for Goal Oriented Judgement: Good Assessment and Plan Assessment & Plan (1) ADHD: Status: Acute Qualifiers: Attention deficit-hyperactivity disorder type: predominantly inattentive Qualified Code(s): F90.0 - Attention-deficit hyperactivity disorder, predominantly inattentive type Code(s): F90.9 - Attention-deficit hyperactivity disorder, unspecified type Plan Although dose of adderall is high, pt may be someone who metabolizes medications rapidly as there are slow, moderate and fast metabolizers in any population of people; that being said above 60mg per day is considered higher risk for side effects; pt does states she uses less adderall on certain days and the full 90 mg on days when there are more demands on her attention/focus and when she works a double shift. 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 She likely has some tolerance from the jail use of adderall. we discussed taking drug holidays but also tapering down or using less on some days; I recommend following through on car diac referral/consultaiton and getting clearance from creative services coordinator to continue the adderall; if creative services coordinator recommends she stop the adderall or lower the dose, pt could try a combination of strattera and lower dose adderall or qellbree with or wothout adderall- although both of these require monitoring for tachycardai and HTN. Evidence does show that the combination is sometimes more effective than either alone. Discussed with patient adding an additional 10mg tablet prn however pt more interested in waiting to try XR formualtion. She did not make a follow up appt but i would be happy to see her again in future. Medications: New dextroamphetamine-amphetamine 20 mg (Adderall) administer doses at least 4-6 hours apart; Partial Fill upon patient request. 20 mg PO TID 90 tabs 0RF dextroamphetamine-amphetamine 10 mg (Adderall) Partial Fill upon patient request. 10 mg PO DAILY PRN 30 tabs 0RF breakthrough ADHD symtpoms Counseling and coordination of Care Pt. Self Management counseling: Maintenance-social rhythm, Med illness tx adherence, Mod caffeine/ETOH intake, Sleep hygiene and General coping skills Medication management counseling: Effectiveness, Side effects, Dosing range, Duration, Drug interaction, Adherence and Other (HTN and adderall) Diagnosis and Prognosis Counseling: Accuracy of diagnosis, Prognosis over time, Impact of diagnosis on life functions, Impact of family relationship, Problematic behaviors secondary to diagnosis and Adequacy of current interventions Details: I spent 75 minutes reviewing the record, seeing the patient and documenting in the medical record. Counseling provided to the patient/caregiver as outlined below. Addressed patient/caregiver concerns regarding current medication regime including effective adherence. Addressed patient/caregiver concerns regarding diagnosis and prognosis including accuracy of diagnosis, prognosis over time, impact of diagnosis. Addressed patient/caregiver concerns regarding impact of recent stressors. [facility] Medical History (Updated 12/22/23 @ 07:31 by Joanie Arriaga, [facility]) Depression Anxiety Headache Thyroid disease Surgical History H/O dilation and curettage (~2017) Family History Mother Substance use FH: mental illness HTN (hypertension) Hypercholesteremia Thyroid disorder Alcoholism Sister Substance use FH: mental illness Father HTN (hypertension) Alcoholism Paternal Grandmother Lung cancer Social History Housing: House Patient Tobacco Use Status: Never used Tobacco e-Cigarette/Vaping Use: Never Used Second Hand Smoke Exposure: No service: Yes Current occupational status: employed 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 one child with special needs dx autism and has in home therapy M-F 9-12 Substance History: none Trauma History: none reported Coding Level of Care Code Psych Diag Eval w/Med (82158) Diagnoses Attention deficit hyperactivity disorder (ADHD), predominantly inattentive type F90.0 Attention deficit-hyperactivity disorder type: predominantly inattentive
== END 2024-01-12 15:14 | disposition home or self-care (01) ==
LOC: HO.HOP 10:55
PROVIDERS: PCP Nurse Practitioner Family; Visit Provider Clinical Nurse Specialist Psychiatric/Mental Health
DX: F90.0 Attention-deficit hyperactivity disorder, predominantly inattentive type (principal)
CPT/HCPCS: 90792

== ENCOUNTER → 2024-01-12 10:55 | Outpatient (BNVA) | payer OTHER, SELFPAY | PROVIDERS: PCP Nurse Practitioner Family; Visit Provider Clinical Nurse Specialist Psychiatric/Mental Health | DX: F90.0 Attention-deficit hyperactivity disorder, predominantly inattentive type (principal) | CPT/HCPCS: 90792 ==

== ENCOUNTER 2024-04-19 13:29 | Outpatient (REF) | payer OTHER, SELFPAY ==
[2024-04-19 15:10] LABS: Anion Gap 11 (12-20); Blood Urea Nitrogen 17 mg/dL (9-16); C Reactive Protein < 0.10 mg/dL (< or = 0.50); Calcium 9.6 mg/dL (8.4-10.2); Carbon Dioxide 25 mmol/L (22-29); Chloride 107 mmol/L (96-108); Estimated Glomerular Filt Rate > 60; Glucose Random 87 mg/dL (60-115); Sodium 139 mmol/L (135-145)
[2024-04-19 15:21] LABS: Erythrocyte Sedimentation Rate 6 MM/HR (0-20)
== END 2024-04-19 13:30 | disposition home or self-care (01) ==
LOC: HO.LAB 13:29
PROVIDERS: PCP Nurse Practitioner Family; Visit Provider Internal Medicine
DX: I10 Essential (primary) hypertension (principal); I30.9 Acute pericarditis, unspecified
CPT/HCPCS: 36415; 80048; 85652; 86140; 93005; 99212

== ENCOUNTER 2024-04-19 13:29 | Outpatient (AMB) | payer OTHER, SELFPAY ==
--- NOTE | 2024-04-19 13:29 | A.OFFVIS_ITS ---
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 A recent echocardiogram reported trivial to mild pericardial effusion. Otherwise, she has a history of hypertension. Apparently, during the 2 of her pregnancies, she had pre- eclampsia but eventually landed up having hypertension. She is on labetalol for the same. Today's blood pressure is on the higher side. A previous blood pressure recorded in November is 126/74 mm Hg. Not clear if it is an isolated high reading or if she is indeed running high. She does believe that she has had some slightly high numbers at home but not as much. Otherwise, no clear-cut cardiac symptoms. She does have ADHD requiring Adderall at the dose has been cut back recently according to her. Apparently, without the medication she cannot function. 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 She can feel when the blood pressure goes up but apart from that nothing definitive in terms of symptoms. [facility] Medical History (Updated 12/22/23 @ 07:31 by Joanie Arriaga, [facility]) Depression Anxiety Headache Thyroid disease Surgical History H/O dilation and curettage (~2017) Family History Mother Substance use FH: mental illness HTN (hypertension) Hypercholesteremia Thyroid disorder Alcoholism Sister Substance use FH: mental illness Father HTN (hypertension) Alcoholism Paternal Grandmother Lung cancer Social History (Updated 04/19/24 @ 13:32 by Elli Fajardo CMA) Housing: House Alcohol intake: current Alcohol intake frequency: holidays/special occasions only Patient Tobacco Use Status: Never used Tobacco e-Cigarette/Vaping Use: Never Used Second Hand Smoke Exposure: No service: Yes Current occupational status: employed 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 Current occupational exposures/hazards: Yes Cognitive needs: No Hearing needs: No Vision needs: Yes (contacts) Review of Systems Const Denies chills, Denies daytime sleepiness, Denies fatigue, Denies fever(s), Denies poor appetite, Denies snoring, Denies stops breathing during sleep, Denies weakness, Denies weight gain and Denies weight loss Eyes Denies loss of vision ENT Denies dizziness and Denies hearing loss Card Denies chest pain, Denies irregular heart rhythm, Denies claudication, Denies leg edema, Denies lightheadedness, Denies palpitations, Denies dyspnea on exertion and Denies orthopnea Resp Denies cough, Denies excessive phlegm production, Denies dyspnea on exertion, Denies snoring and Denies wheezing GI Denies abdominal pain, Denies hematochezia, Denies change in bowel habits, Denies nausea and Denies vomiting Denies urinary frequency and Denies dysuria Musc Denies arthralgias, Denies muscle weakness, Denies numbness and Denies other Skin/Breast Denies nail changes and Denies rash Neuro Denies Abnormal speech present, Denies dizziness, Denies loss of vision, Denies memory loss, Denies numbness and Denies weakness Psych Denies depression and Denies memory loss Endo Denies fatigue and Denies palpitations Mikey/Lymph Denies easy bruising Aller/Immun Denies wheezing Physical Exam Vital Signs: Last Vital Signs Pulse 79 04/19/24 13:30 BP 155/104 H 04/19/24 13:30 BMI result Body Mass Index 28.2 Const General: comfortable and no acute distress Orientation/consciousness: patient oriented x3 HEENT Other: Unremarkable Head: Yes normal to inspection Neck Neck: Yes normal visual inspection Chest Chest palpation & inspection: normal inspection of the chest Resp Auscultation: clear to auscultation bilaterally Cardio Palpation: normal PMI Heart sounds: S1 normal heart sound present, S2 normal heart sound present, no gallops, no murmurs and no rubs GI Palpation (GI): Soft to palpation Back/Spine/Pelvis Other: unremarkable Skin General skin exam: no rashes or lesions noted Neuro General: patient oriented x3 Speech: No Abnormal speech present Extrem General: Yes normal to inspection Psych Mental Status: mental status grossly normal Office Procedures EKG Details: EKG with underlying sinus rhythm at 79/Min; no significant ST-T changes and otherwise unremarkable. [place] [id number], Complete Assessment & Plan Assessment & Plan (1) Pericardial effusion: Code(s): I31.39 - Other pericardial effusion (noninflammatory) Category: Medical Plan: In the echocardiogram, trivial to small pericardial effusion. Most likely idiopathic or prior viral infection. She has got no autoimmune disease history. Thyroid is normal. No history of malignancy. We can check an ESR/CRP. She has got no pericarditic symptoms however. We will recheck echocardiogram in about 6 months to see if there is any change in fluid size. Otherwise, mainly reassurance. (2) HTN (hypertension): Code(s): I10 - Essential (primary) hypertension Category: Medical Qualifiers: Hypertension type: primary hypertension Qualified Code(s): I10 - Essential (primary) hypertension Plan: Today's blood pressure is on the higher side but previous values are okay. Advised her to do home blood pressures. If indeed runs high, then will need med changes. She is currently on labetalol but possibly use ARB +/-calcium channel blockers +/-diuretic as necessary. Orders: Orders Basic Metabolic Panel Today I10 - Essential (primary) hypertension CA Echo Limited 6 Months I31.39 - Other pericardial effusion (noninflammatory) C Reactive Protein Today I10 - Essential (primary) hypertension, I30.9 - Acute pericarditis, unspecified Erythrocyte Sedimentation Rate Today I30.9 - Acute pericarditis, unspecified, I31.39 - Other pericardial effusion (noninflammatory) Coding Level of Care Code New Pt Level 4 (72454) Complex EM visit Add On G2211 Diagnoses Pericardial effusion I31.39 Primary hypertension I10 Hypertension type: primary hypertension CPT Codes EKG - CPT: [id number], Complete ([id number])
[2024-04-19 13:30] VITALS: BP 155/104; PULSE 79; BMI 28.2
== END 2024-04-19 13:56 | disposition home or self-care (01) ==
PROVIDERS: PCP Nurse Practitioner Family; Visit Provider Internal Medicine
DX: I31.39 Other pericardial effusion (noninflammatory) (principal); I10 Essential (primary) hypertension
CPT/HCPCS: 93010; 99214; G2211

== ENCOUNTER 2024-04-23 13:58 | Outpatient (AMB) | payer OTHER, SELFPAY ==
--- NOTE | 2024-04-23 13:33 | A.OFFPSYCH_ITS ---
Intake Intake Visit Reasons: F/u consultation Allergies No Known Allergies Allergy (Verified 12/22/23 08:54) Medication List - Last Reconciled 04/23/24 by Ashlyn Clayton APRN dextroamphetamine-amphetamine 10 mg (Adderall) 10 mg PO DAILY PRN dextroamphetamine-amphetamine 20 mg (Adderall) 20 mg PO TID labetalol 150 mg (1.5 x 100 mg) PO BID 90 days HPI- Psychiatric Chief Complaint: F/u consultation HPI Narrative: Pt reports a high level of stress: she is working, parenting 2 small children, got this month, is going to court against her ex and father of children who is not abiding by court order, and she is buying a house and moving this week. she reports she feels tired. she is taking the adderall 20 mg TID and extra 10mg qd prn for breakthrough symptoms; she would prefer to be on 30mg TID but accepts that due to HTN she should stay on current dose; discussed adequate rest, sleep, hydration and nutrition; she often forgets to eat. she saw cardiology for consult on cardiac effusion; TW spoke with Dr Gutierrez who recommends pt use smallest effective amount of adderall. adderall has nothing to do with cardiac effusion. Pt stable on current dose. she will try adding magnesium glycinate 200mg daily for relaxation. she sees therapist weekly. Past Psychiatric History: outpt treatment since age 17. no IPLOC Subjective Subjective Subjective Medication Compliance: Yes Side effects from medications: No Review of Systems Medical Review of Systems: unchanged Mental Status Exam Mental Status Exam Patient Appearance: Well Grooomed and Appropriate Patient Orientation: Person, Place, Time and Situation Level of Consciousness: Awake, Appropriate and Alert Patient Behavior: Appropriate and Cooperative Mood Description: Anxious Affect Description: Anxious Patient Cognition Impaired: No Ability to Follow Directions: Good Speech Pattern: Clear and Coherent Memory Description: Intact Hallucinations: None Delusions: Not Present Thought Process: Intact and Distracted Thought Content: positive for Intact Judgement: Good Telehealth Telehealth Telehealth Platform: Other (please specify) (doxy.[email or web address]) Location of provider rendering services: practice address Location of patient: address on file Patient Identification confirmed using: Name, : Yes Telehealth method: video Patient verbally consented to treatment: Yes Patient verbally consented to billing insurance company: Yes Patient informed of any privacy concerns related to visit: Yes Minutes spent on Phone/Video with Pt.: 30 Assessment and Plan Assessment & Plan (1) ADHD: Status: Acute Qualifiers: Attention deficit-hyperactivity disorder type: predominantly inattentive Qualified Code(s): F90.0 - Attention-deficit hyperactivity disorder, predominantly inattentive type Code(s): F90.9 - Attention-deficit hyperactivity disorder, unspecified type (2) HTN (hypertension): Status: Acute Qualifiers: Hypertension type: primary hypertension Qualified Code(s): I10 - Essential (primary) hypertension Code(s): I10 - Essential (primary) hypertension (3) SAROJ (generalized anxiety disorder): Status: Acute Code(s): F41.1 - Generalized anxiety disorder Plan continue meds per below follow up with PCP pt can be re-referred if status changes Medications: Refilled dextroamphetamine-amphetamine 20 mg (Adderall) administer doses at least 4-6 hours apart; Partial Fill upon patient request. 20 mg PO TID 90 tabs 0RF dextroamphetamine-amphetamine 10 mg (Adderall) Partial Fill upon patient request. 10 mg PO DAILY PRN 30 tabs 0RF breakthrough ADHD symtpoms Counseling and coordination of Care Pt. Self Management counseling: Exercise, Maintenance-social rhythm, Med illness tx adherence, Mod caffeine/ETOH intake, Nutrition education and improvement, Sleep hygiene, General coping skills and Problem solving Medication management counseling: Effectiveness, Side effects, Dosing range, Duration, Drug interaction and Adherence Diagnosis and Prognosis Counseling: Accuracy of diagnosis, Prognosis over time, Impact of diagnosis on life functions, Impact of family relationship, Problematic behaviors secondary to diagnosis and Adequacy of current interventions Details: I spent 40 minutes reviewing the record, seeing the patient and documenting in the medical record. Counseling provided to the patient/caregiver as outlined below. Addressed patient/caregiver concerns regarding current medication regime including effective adherence. Addressed patient/caregiver concerns regarding diagnosis and prognosis including accuracy of diagnosis, prognosis over time, impact of diagnosis. Addressed patient/caregiver concerns regarding impact of recent stressors. [facility] Medical History (Updated 12/22/23 @ 07:31 by CONNOR Paez) Depression Anxiety Headache Thyroid disease Surgical History H/O dilation and curettage (~2016) Family History Mother Substance use FH: mental illness HTN (hypertension) Hypercholesteremia Thyroid disorder Alcoholism Sister Substance use FH: mental illness Father HTN (hypertension) Alcoholism Paternal Grandmother Lung cancer Social History (Updated 04/19/24 @ 13:32 by Elli Fajardo CMA) Housing: House Alcohol intake: current Alcohol intake frequency: holidays/special occasions only Patient Tobacco Use Status: Never used Tobacco e-Cigarette/Vaping Use: Never Used Second Hand Smoke Exposure: No service: Yes Current occupational status: employed 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 one child with special needs dx autism and has in home therapy M-F 9-12 Substance History: none Trauma History: none reported Coding Level of Care Code Tele Est Pt Level 4 (31452) Diagnoses Attention deficit hyperactivity disorder (ADHD), predominantly inattentive type F90.0 Attention deficit-hyperactivity disorder type: predominantly inattentive Primary hypertension I10 Hypertension type: primary hypertension SAROJ (generalized anxiety disorder) F41.1
== END 2024-04-23 13:58 | disposition home or self-care (01) ==
LOC: HO.HOP 13:58
PROVIDERS: PCP Nurse Practitioner Family; Visit Provider Clinical Nurse Specialist Psychiatric/Mental Health
DX: F90.0 Attention-deficit hyperactivity disorder, predominantly inattentive type (principal); I10 Essential (primary) hypertension; F41.1 Generalized anxiety disorder
CPT/HCPCS: 99214

== ENCOUNTER 2024-05-22 13:04 | Outpatient (REF) | payer OTHER, SELFPAY ==
[2024-05-22 18:47] LABS: HCG Quantitative < 2 mIU/mL
== END 2024-05-22 13:05 | disposition home or self-care (01) ==
LOC: HO.WFDLDS 13:04
PROVIDERS: PCP Nurse Practitioner Family; Visit Provider Nurse Practitioner Family
DX: F90.0 Attention-deficit hyperactivity disorder, predominantly inattentive type (principal); F41.1 Generalized anxiety disorder; I10 Essential (primary) hypertension; G89.29 Other chronic pain; M54.50 Low back pain, unspecified; N91.2 Amenorrhea, unspecified; R11.2 Nausea with vomiting, unspecified; I31.39 Other pericardial effusion (noninflammatory)
CPT/HCPCS: 36415; 84702; 96127; 99212

== ENCOUNTER 2024-05-22 13:04 | Outpatient (AMB) | payer OTHER, SELFPAY ==
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
[2024-05-22 13:09] VITALS: BP 124/72; PULSE 64; RESP 12; TEMP 36.1; O2SAT 99; BMI 28.2
== END 2024-05-22 13:49 | disposition home or self-care (01) ==
LOC: HO.HMCFM 13:05
PROVIDERS: PCP Nurse Practitioner Family; Visit Provider Nurse Practitioner Family
DX: I10 Essential (primary) hypertension (principal); F90.0 Attention-deficit hyperactivity disorder, predominantly inattentive type; F41.1 Generalized anxiety disorder; M54.50 Low back pain, unspecified; G89.29 Other chronic pain; N91.2 Amenorrhea, unspecified; R11.2 Nausea with vomiting, unspecified; I31.39 Other pericardial effusion (noninflammatory)

== ENCOUNTER 2024-06-03 14:07 | Outpatient (REF) | payer OTHER, SELFPAY | END 2024-06-03 14:08 | disposition home or self-care (01) | LOC: HO.LNP 14:07 | PROVIDERS: Visit Provider Nurse Practitioner Family | DX: R11.2 Nausea with vomiting, unspecified (principal) | CPT/HCPCS: 87338 ==

== ENCOUNTER 2024-08-19 12:02 | Outpatient (AMB) | payer OTHER, SELFPAY ==
--- NOTE | 2024-08-19 12:08 | A.OFFPC_ITS ---
Vital Signs 08/19/24 13:09 BP 135/73 Pulse 80 Intake Visit Reasons: 3 mo ADHD SAROJ HTN FU Intake Note: Telehealth Routine 3 month follow up htn [employer]istrar [employer] Required: No Allergies No Known Allergies Allergy (Verified 08/19/24 12:26) Medication List - Last Reconciled 08/19/24 by Joanie Arriaga, GRAIN ELEVATOR MAN-BC dextroamphetamine-amphetamine 10 mg (Adderall) 10 mg PO DAILY PRN dextroamphetamine-amphetamine 20 mg (Adderall) 20 mg PO TID labetalol 100 mg PO TID 90 days ondansetron HCl 4 mg PO Q8H PRN 3 days Tobacco use date assessed: 08/19/24 Dental Screening Dental Screen Date: 05/22/24 HPI HPI Comments History of Present Illness Details 34 y/o F pre-eclampsia w/ [employer] continuous churn HTN, ADHD, SAROJ, pericardial effusion, Social: 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 Adult bridge consult, note reviewed: 03/2024 I have seen Gabi twice. I contin ued her adderall 20mg TID and 10mg daily prn breakthrough ADHD symptoms. She has had a cardiology work up and EKG normal; she will see cardiology in 6 months to make sure fluid isn't increasing and was temporary reaction to viral illness or such. She was hoping to increase it back to 30mg TID but I told her I recommend against that. She agrees to work on nutrition and stress management; she sees her therapist weekly. I am sending her back to you for continued care of ADHD if you are comfortable with that. She can be re-referred if anything changes. thank you for the consultation. [facility] Cards RTO 6 months Telehealth visit today for routine fu was scheduled in person but asked for tele d/t being sick and having children HTN well controlled on current meds; P higher end of normal. Denies swelling in legs. Endorses noncardiac chest pain. FU with Cards 09/2024 Mood - stressed, anxious, lots going on. ADHD well controlled on current meds Back pain - low back into hips and sometimes into abd cont, present for years since being preg with children. referred to chiro in past but did not go. wonders about xrays. interested in referral to chiro Diarrhea- started all weekend. nonblood. denies fever, chills. exposed to c diff at work; took immodium last night no stool since. Plan Stool CDiff Cont meds Xray of back and chiro referral FU with Cards RTO 3 months CPE, sooner PRN Total time spent caring for the patient today was 32 minutes. This includes time spent before the visit reviewing the chart, time spent during the visit, and time spent after the visit on documentation, reviewing laboratory results, diagnostic imaging, medications, performing a medically necessary evaluation, counseling on diagnoses, care coordination, ordering appropriate tests, ordering appropriate medications, review of tests performed by other providers, reporting test results with the patient, communication with other healthcare providers. [facility] Medical History (Updated 08/19/24 @ 13:21 by Joanie Arriaga, [facility]) Depression Anxiety Headache Thyroid disease Surgical History H/O dilation and curettage (~2017) Family History Mother Substance use FH: mental illness HTN (hypertension) Hypercholesteremia Thyroid disorder Alcoholism Sister Substance use FH: mental illness Father HTN (hypertension) Alcoholism Paternal Grandmother Lung cancer Social History (Updated 04/19/24 @ 13:32 by Elli Fajardo CMA) Housing: House Alcohol intake: current Alcohol intake frequency: holidays/special occasions only Patient Tobacco Use Status: Never used Tobacco e-Cigarette/Vaping Use: Never Used Second Hand Smoke Exposure: No service: Yes Current occupational status: employed 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 Thompson Zamora, Jo Meneses, Casey Alford and colleagues, with an educational clinton from [employer]. Physical exam (Primary Care) Tobacco/Smoking Status: Tobacco use Status Tobacco use date assessed 08/19/24 08/19/24 12:12 Patient Tobacco Use Status Never used Tobacco 08/19/24 12:10 e-Cigarette/Vaping Use Never Used 08/19/24 12:10 Thrive Assessment: Date of Thrive Assessment Date Thrive assessed 05/22/24 08/19/24 12:10 Telehealth Telehealth Telehealth Platform: [facility] Location of provider rendering services: practice address Location of patient: address on file Patient Identification confirmed using: Name, : Yes Telehealth method: voice only Patient verbally consented to treatment: Yes Patient verbally consented to billing insurance company: Yes Patient informed of any privacy concerns related to visit: Yes Minutes spent on Phone/Video with Pt.: 15 Coding Level of Care Code Tele Est Pt Level 4 (27181) Complex EM visit Add On G2211 Diagnoses Attention deficit hyperactivity disorder (ADHD), predominantly inattentive type F90.0 Attention deficit-hyperactivity disorder type: predominantly inattentive SAROJ (generalized anxiety disorder) F41.1 Primary hypertension I10 Hypertension type: primary hypertension Pericardial effusion I31.39 Chronic bilateral low back pain without sciatica M54.50; G89.29 Back pain location: low back pain Chronicity: chronic Back pain laterality: bilateral Sciatica presence: without sciatica Diarrhea, unspecified type R19.7 Diarrhea type: unspecified type Assessment & Plan Assessment & Plan (1) ADHD: Code(s): F90.9 - Attention-deficit hyperactivity disorder, unspecified type Category: Medical Qualifiers: Attention deficit-hyperactivity disorder type: predominantly inattentive Qualified Code(s): F90.0 - Attention-deficit hyperactivity disorder, predominantly inattentive type (2) SAROJ (generalized anxiety disorder): Code(s): F41.1 - Generalized anxiety disorder Category: Medical (3) HTN (hypertension): Code(s): I10 - Essential (primary) hypertension Category: Medical Qualifiers: Hypertension type: primary hypertension Qualified Code(s): I10 - Essential (primary) hypertension (4) Pericardial effusion: Code(s): I31.39 - Other pericardial effusion (noninflammatory) Category: Medical (5) Back pain: Code(s): M54.9 - Dorsalgia, unspecified Category: Medical Qualifiers: Back pain location: low back pain Chronicity: chronic Back pain laterality: bilateral Sciatica presence: without sciatica Qualified Code(s): M54.50 - Low back pain, unspecified; G89.29 - Other chronic pain (6) Diarrhea: Code(s): R19.7 - Diarrhea, unspecified Category: Medical Qualifiers: Diarrhea type: unspecified type Qualified Code(s): R19.7 - Diarrhea, unspecified Plan . Orders: Orders XR lumbar spine 6V w bending Today G89.29 - Other chronic pain, M54.50 - Low back pain, unspecified CDiff Gene PCR Today R19.7 - Diarrhea, unspecified Referrals Chiropractic Referral G89.29 - Other chronic pain, M54.50 - Low back pain, unspecified
[2024-08-19 13:09] VITALS: BP 135/73; PULSE 80
== END 2024-08-19 13:22 | disposition home or self-care (01) ==
LOC: HO.HMCFM 12:02
PROVIDERS: PCP Nurse Practitioner Family; Visit Provider Nurse Practitioner Family
DX: F90.0 Attention-deficit hyperactivity disorder, predominantly inattentive type (principal); F41.1 Generalized anxiety disorder; I10 Essential (primary) hypertension; I31.39 Other pericardial effusion (noninflammatory); M54.50 Low back pain, unspecified; G89.29 Other chronic pain; R19.7 Diarrhea, unspecified

== ENCOUNTER → 2024-08-19 12:02 | Outpatient (BNVA) | payer OTHER, SELFPAY | PROVIDERS: PCP Nurse Practitioner Family; Visit Provider Nurse Practitioner Family | DX: Z13.89 Encounter for screening for other disorder (principal) ==

== ENCOUNTER 2024-08-20 11:31 | Outpatient (REF) | payer OTHER, SELFPAY ==
[2024-08-20 13:13] LABS: CDiff Gene PCR NEGATIVE (Negative)
== END 2024-08-20 11:32 | disposition home or self-care (01) ==
LOC: HO.LNP 11:31
PROVIDERS: Visit Provider Nurse Practitioner Family
DX: R19.7 Diarrhea, unspecified (principal)
CPT/HCPCS: 87493

== ENCOUNTER 2025-01-06 12:00 | Outpatient (AMB) | payer MEDICAID, SELFPAY ==
[2025-01-06 12:05] VITALS: BP 126/84; PULSE 86; RESP 14; TEMP 37.3; O2SAT 100; BMI 28.5
--- NOTE | 2025-01-06 12:05 | MHC.PC.OV ---
Vital Signs 01/06/25 12:05 Height 5 ft Weight 146 lb BMI 28.5 BP 126/84 Blood Pressure Location Lt brachial Position Sitting Respiration 14 Pulse 86 Pulse Source Pulse Oximeter Temp 99.1 F Temp Source Oral Pulse Oximetry (%) 100 Oxygen Delivery Method Room Air Intake Visit Reasons: CPE RE Intake Note: Physical. Runny nose, fatigue, body aches. Started or Monday of last week. Manager Environmental Health And Safety Required: No Allergies No Known Allergies Allergy (Verified 01/06/25 12:05) Medication List - Last Reconciled 01/06/25 by Joanie Arriaga, ADMINISTRATIVE SUPPORT ASSISTANT- dextroamphetamine-amphetamine 10 mg (Adderall) 10 mg PO DAILY PRN dextroamphetamine-amphetamine 20 mg (Adderall) 20 mg PO TID labetalol 100 mg PO TID 90 days ondansetron HCl 4 mg PO Q8H PRN 3 days Tobacco use date assessed: 01/06/25 Dental Screening Dental Screen Date: 05/22/24 HPI HPI Comments History of Present Illness Details 34 y/o F pre-eclampsia w/ rn long term care HTN, ADHD, SAROJ, pericardial effusion, Social: 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 Optho - wears contacts [facility] Adult bridge consult, note reviewed: 03/2024 I have seen Gabi twice. I continued her adderall 20mg TID and 10mg daily prn breakthrough ADHD symptoms. She has had a cardiology work up and EKG normal; she will see cardiology in 6 months to make sure fluid isn't increasing and was temporary reaction to viral illness or such. She was hoping to increase it back to 30mg TID but I told her I recommend against that. She agrees to work on nutrition and stress management; she sees her therapist weekly. I am sending her back to you for continued care of ADHD if you are comfortable with that. She can be re-referred if anything changes. thank you for the consultation. [facility] R[place] 6 months History of Present Illness The patient is a 34-year-old female presenting for a complete physical exam and evaluation of flu-like symptoms. Viral Syndrome: - The patient reports the onset of flu-like symptoms last week. - She has a low-grade temperature of 99.1?F today. - Dtr sick w similar sx. Managing supportively with otc meds. Hypertension: - The patient has a history of hypertension and takes labetalol 100 mg three times daily. - She reports her blood pressures have been fine recently, with the highest reading being around 145 systolic, which she attributes to stress. - She previously had headaches associated with high blood pressure, and while she still has headaches frequently, her blood pressure has been well-controlled. - She denies any chest pain. Attention-Deficit Hyperactivity Disorder: - The patient has a history of ADHD, for which she takes Adderall 10 mg daily and an additional 20 mg three times per day. Pericardial Effusion: - She has a history of pericardial effusion that was being monitored by cardiology. - She had a prior echocardiogram and was due for a repeat study and follow-up visit, but she missed the appointment. - An order for a repeat echocardiogram was placed in March to be completed in six months and remains active. - Advised to reschedule the echo and cards appt tri. Chronic Nausea: - The patient has a history of chronic nausea, for which she uses ondansetron. Past Medical History - Attention-deficit hyperactivity disorder, managed with Adderall - Hypertension, managed with labetalol - Chronic nausea, managed with ondansetron - Pericardial effusion, requires follow-up - Previously attended counseling at [facility] Past Surgical History - Dilation and curettage (D&C) in 2017 Family History - No changes in family medical history reported. Social History - Employment: Works full-time, including 16-hour double shifts on , Fridays, and Saturdays. - Marital Status: in March of this year. - Family: Has children; her son, who is in kindergarten, has special needs, recently had a concussion, and eloped from school. - Social Stressors: Reports significant stress related to ongoing court proceedings with her ex-, a separate criminal case, work demands, and her son's health and school issues. - Mental Health: Previously attended counseling and is considering finding a new therapist. Review of Systems - General: Reports flu-like symptoms that started last week, generalized body soreness, and a low-grade fever. - Neurological: Reports having headaches all the time . - Cardiovascular: Denies chest pain. Reports occasionally puffy ankles, particularly after long work shifts. - Gastrointestinal: Reports chronic nausea. - Genitourinary: Denies being . Physical Exam General: Well developed, well nourished, in no acute distress. Appears stated age. Low-grade temperature of 99.1?F noted. Head: Normocephalic, atraumatic. Eyes: Pupils are equal, round and reactive to light and accommodation. Conjunctivae are clear. Scleras nonicteric bilat. Vision grossly normal. Ears: TMs clear AU, EACS WNL. Nose: Patent, clear drainage, mild congestion Neck: No carotid bruit bilat. Supple, no adenopathy or thyromegaly. Breast: Edu on SBE. Lungs: Clear to auscultation bilaterally. No rales, rhonchi or wheeze noted. Good air flow in all [place]ck[place]. Heart: Regular rate and rhythm. No murmurs, click, rubs or gallops are noted. Abdomen: Bowel sounds present in all quadrants. The abdomen is soft, nontender, with no masses or organomegaly noted. No hernias are noted. : Deferred. Reviewed recommendations for routine PANEL WIRER. Pulses: Peripheral pulses are equal and palpable bilaterally. Extremities: No clubbing, cyanosis noted. Mild edema noted, likely due to prolonged standing during 16-hour shifts. Neurologic: Gait and station normal. Cranial Nerves 2-12 intact. Motor strength grossly symmetrical and intact. No sensory loss. Balance normal. Skin: No rashes, ulcers, or lesions noted. Turgor is good. Skin color is good. Hair and nails are without abnormalities. Psych: Normal eye contact, affect and mood appropriate, and normal interactions. Patient is alert and appropriate to context. Results - Labs from March were reviewed: CMP was normal, CRP was negative, and a test was negative. - Prior echocardiogram was performed to evaluate for pericardial effusion. Medical Decision Making The patient is a 34-year-old female who presents for a complete physical exam and reports flu-like symptoms that began last week. Her current presentation, including a low-grade fever, is consistent with a viral syndrome, and there are no signs of a secondary bacterial infection at this time. Her chronic conditions, including ADHD and hypertension, appear to be well-managed on her current medication regimen of Adderall and labetalol. Her blood pressure is controlled, and her weight is stable. A wynn issue is the need for cardiology follow-up to monitor a known pericardial effusion. She missed a previous appointment, and an active order for a repeat echocardiogram exists. She was provided with clear instructions on how to schedule the test and the subsequent specialist visit. Preventative care is largely up to date, including her Tdap and Pap smear. The influenza vaccine was deferred today due to her acute illness but is recommended once she recovers. The patient is experiencing significant psychosocial stressors, which are likely impacting her overall health and contributing to her headaches and fatigue. Her intention to re-engage with counseling is appropriate and was supported. A follow-up visit for a medication check is scheduled in three months. Plan Health Maintenance - Encouraged to restart counseling for stress management as she is able. - Schedule a follow-up visit in three months for a routine medication check. 1. Viral Syndrome - Diagnosis is consistent with a viral illness, with no evidence of a secondary bacterial infection currently. - Recommended supportive care, including rest and hydration. - Advised to seek follow-up if symptoms persist beyond two weeks or if new symptoms such as fever spikes or sinus pain develop. 2. Hypertension - Continue labetalol 100 mg three times daily as blood pressure is well-controlled. - Schedule a routine medication check in three months. 3. Pericardial Effusion - Instructed to schedule the active order for a repeat echocardiogram. - After scheduling the echocardiogram, advised to schedule a follow-up appointment with cardiology to review the results. 4. Attention-Deficit Hyperactivity Disorder - Continue current Adderall regimen. - Plan to follow up in three months for a medication check. 5. Chronic Nausea - Continue using ondansetron as needed. Patient Instructions - Get your flu shot at work once you are feeling better and no longer have a fever. - Please call the hospital to schedule your echocardiogram. After you have that appointment scheduled, call the cardiology office to make a follow-up appointment to review the results. - For your current viral illness, get plenty of rest and drink lots of water. - Please contact our office if you are not feeling better after two weeks, if your fever keeps coming back, or if you develop new symptoms like pain in your face or sinuses. - Continue taking all of your current medications as prescribed. - We will see you back in three months for a medication check-up. Consent Patient was informed and verbally consented to the use of an ambient scribe for clinic note documentation during this visit. An additional 15 minutes was spent addressing the problem(s) noted at todays visit. This includes time spent before the visit reviewing the chart, time spent during the visit, and time spent after the visit on documentation reviewing laboratory results, diagnostic imaging, medications, performing a medically necessary evaluation, counseling on diagnoses, care coordination, ordering appropriate tests, ordering appropriate medications, review of tests performed by other providers, reporting test results with the patient, communication with other healthcare providers. [facility] Medical History (Updated 01/06/25 @ 12:36 by [facility]) Anxiety Depression Headache Thyroid disease Surgical History H/O dilation and curettage (~2016) Family History Mother Substance use FH: mental illness HTN (hypertension) Hypercholesteremia Thyroid disorder Alcoholism Sister Substance use FH: mental illness Father HTN (hypertension) Alcoholism Paternal Grandmother Lung cancer Social History (Updated 04/19/24 @ 13:32 by Elli Fajardo CMA) Housing: House Alcohol intake: current Alcohol intake frequency: holidays/special occasions only Patient Tobacco Use Status: Never used Tobacco e-Cigarette/Vaping Use: Never Used Second Hand Smoke Exposure: No service: Yes Current occupational status: employed 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 Current occupational exposures/hazards: Yes Cognitive needs: No Hearing needs: No Vision needs: Yes (contacts) Questionnaire Thrive Questionnaire Date Thrive assessed: 05/15/24 I am a: Patient What is your living situation today?: I have a steady place to live Within the past 12 months, did the food you bought not last and you didn't have the money to get more?: Never true Within the past 12 months, did you worry whether your food would run out before you got money to buy more?: Never true Do you have trouble paying for medicines?: No Do you have trouble getting transportation to medical appointments?: No Do you have trouble paying your heating and electricity bill?: No Do you have trouble taking care of your child, family member or friend?: No Do you have trouble with day-to-day activities such as bathing, preparing meals, shopping, managing finances, etc.?: No Are you currently unemployed and looking for a job?: No Are you interested in more education?: No Please select the resources that you would like help with: None THRIVE Score: 0 AUDIT C Alcohol Use Questionnaire (AUDIT-C) 1. How often do you have a drink containing alcohol?: Monthly or less 2. How many drinks containing alcohol do you have on a typical day when you are drinking?: 1 or 2 3. How often do you have six or more drinks on one occasion?: Never Total Score: 1 SAROJ-7 AMB Questionnaire SAROJ-7 Date SAROJ - 7 assessed: 05/22/24 Source: Developed by Drs. Thompson Zamora, Jo Meneses, Casey Alford and colleagues, with an educational clinton from [employer]. Physical exam (Primary Care) Vital Signs: Last Vital Signs Temp 99.1 F 01/06/25 12:05 Pulse 86 01/06/25 12:05 Resp 14 01/06/25 12:05 BP 126/84 01/06/25 12:05 Pulse Ox 100 01/06/25 12:05 Oxygen Delivery Method Room Air 01/06/25 12:05 BMI result Body Mass Index 28.5 Tobacco/Smoking Status: Tobacco use Status Tobacco use date assessed 01/06/25 01/06/25 12:11 Patient Tobacco Use Status Never used Tobacco 01/06/25 12:11 e-Cigarette/Vaping Use Never Used 01/06/25 12:11 Thrive Assessment: Date of Thrive Assessment Date Thrive assessed 05/15/24 01/06/25 12:11 Coding Level of Care Code Est Pt Level 3 (89346) Est Pt Prev Care 18-39y(46125) Diagnoses Encounter for general adult medical examination with abnormal findings Z00.01 Primary hypertension I10 Hypertension type: primary hypertension Pericardial effusion I31.39 Attention deficit hyperactivity disorder (ADHD), predominantly inattentive type F90.0 Attention deficit-hyperactivity disorder type: predominantly inattentive SAROJ (generalized anxiety disorder) F41.1 Flu-like symptoms R68.89 History of Papanicolaou smear of cervix Z92.89 Assessment & Plan Assessment & Plan (1) Encounter for general adult medical examination with abnormal findings: Onset Date: ~01/06/25 Code(s): Z00.01 - Encounter for general adult medical examination with abnormal findings Category: Medical (2) HTN (hypertension): Code(s): I10 - Essential (primary) hypertension Category: Medical Qualifiers: Hypertension type: primary hypertension Qualified Code(s): I10 - Essential (primary) hypertension (3) Pericardial effusion: Code(s): I31.39 - Other pericardial effusion (noninflammatory) Category: Medical (4) ADHD: Code(s): F90.9 - Attention-deficit hyperactivity disorder, unspecified type Category: Medical Qualifiers: Attention deficit-hyperactivity disorder type: predominantly inattentive Qualified Code(s): F90.0 - Attention-deficit hyperactivity disorder, predominantly inattentive type (5) SAROJ (generalized anxiety disorder): Code(s): F41.1 - Generalized anxiety disorder Category: Medical (6) Flu-like symptoms: Code(s): R68.89 - Other general symptoms and signs (7) History of Papanicolaou smear of cervix: Onset Date: ~2022 Code(s): Z92.89 - Personal history of other medical treatment Category: Medical Plan . Patient Instructions: Health screenings for women You should visit your health care provider from time to time, even if you are healthy. The purpose of these visits is to: Screen for medical issues Assess your risk for future medical problems Encourage a healthy lifestyle Update vaccinations and other preventive care services Help you get to know your provider in case of an illness Information Even if you feel fine, you should still see your provider for regular checkups. These visits can help you avoid problems in the future. For example, the only way to find out if you have high blood pressure is to have it checked regularly. High blood sugar and high cholesterol levels also may not have any symptoms in the early stages. A simple blood test can check for these conditions. There are specific times when you should see your provider or receive specific health screenings. The [place] Preventive Services Task Force publishes a list of recommended screenings. Below are screening guidelines for women ages 18 to 39. BLOOD PRESSURE SCREENING Your blood pressure should be checked at least once every 3 to 5 years if: Your blood pressure is in the normal range (top number less than 120 mm Hg and bottom number less than 80 mm Hg) You don't have risk factors for high blood pressure Ask your provider if you need your blood pressure checked more often if: The top number is 120 to 129 mm Hg or the bottom number is 70 to 79 mm Hg You have diabetes, heart disease, kidney problems, are overweight, or have certain other health conditions You have a first-degree relative with high blood pressure You are Black You had high blood pressure during a If the top number is 130 mm Hg or greater or the bottom number is 80 mm Hg or greater, this is considered stage 1 hypertension. Schedule an appointment with your provider to learn how you can reduce your blood pressure. Watch for blood pressure screenings in your area. Ask your provider if you can stop in to have your blood pressure checked. BREAST CANCER SCREENING Experts do not agree about the benefits of breast self-exams in finding breast cancer or saving lives. Talk to your provider about what is best for you. A screening mammogram is not recommended for most women under age 40. Your provider may discuss and recommend mammograms, MRI scans, or ultrasounds if you have an increased risk for breast cancer, such as: A mother or sister who had breast cancer at a young age (most often starting screening earlier than the age the close relative was diagnosed) You carry a high-risk genetic marker CERVICAL CANCER SCREENING Cervical cancer screening should start at age 21 years unless your provider advises otherwise. After the first test: Women ages 21 through 29 should have a Pap test every 3 years. Exoprts do not agree on whether HPV testing is recommended for this age group. Women ages 30 through 65 should be screened with either a Pap test every 3 years or the HPV test every 5 years or both tests every 5 years (called cotesting ). Women who have been treated for precancer (cervical dysplasia) should continue to have Pap tests for 20 years after treatment or until age 65, whichever is longer. If you have had your uterus and cervix removed (total hysterectomy), and you have not been diagnosed with cervical cancer or precancer (high grade cervical neoplasia), you do not need cervical cancer screening. CHOLESTEROL SCREENING Cholesterol screening should begin at: Age 45 for women with no known risk factors for coronary heart disease Age 20 for women with known risk factors for coronary heart disease Repeat cholesterol screening should take place: Every 5 years for women with normal cholesterol levels More often if changes occur in lifestyle (including weight gain and diet) More often if you have diabetes, heart disease, kidney problems, or certain other conditions DIABETES SCREENING You should be screened for diabetes starting at age 35 and then repeated every 3 years if you have no risk factors for diabetes. Screening may need to start earlier and be repeated more often if you have other risk factors for diabetes, such as: You have a first degree relative with diabetes. You are overweight or have obesity. You have high blood pressure, prediabetes, or a history of heart disease. Screening for diabetes should be done if you are planning to become and you are overweight and have other risk factors such as high blood pressure. DENTAL EXAM Go to the dentist once or twice every year for an exam and cleaning. Your dentist will evaluate if you need more frequent visits. EYE EXAM Have an eye exam every 5 to 10 years before age 40. If you have vision problems, have an eye exam every 2 years or more often if recommended by your provider. You should have an eye exam that includes an examination of your retina (back of your eye) at least every year if you have diabetes. IMMUNIZATIONS Commonly needed vaccines include: Flu shot: get one every year. COVID-19 vaccine: ask your provider what is best for you. Tetanus-diphtheria and acellular pertussis (Tdap) vaccine: have one at or after age 19 as one of your tetanus-diphtheria vaccines if you did not receive it as an adolescent. Tetanus-diphtheria: have a booster (or Tdap) every 10 years. Varicella vaccine: receive 2 doses if you never had chickenpox or the varicella vaccine. Hepatitis B vaccine: receive 2, 3, or 4 doses, depending on your exact circumstances. Measles, mumps, and rubella (MMR) vaccine: receive 1 to 2 doses if you are not already immune to MMR. Your provider can tell you if you are immune. Ask your provider about the human papillomavirus (HPV) vaccine if: You have not received the HPV vaccine in the past You have not completed the full vaccine series (you should catch up on this shot) Ask your provider if you should receive other immunizations if you have certain health problems that increase your risk for some diseases such as pneumonia. INFECTIOUS DISEASE SCREENING Women who are sexually active should be screened for chlamydia and gonorrhea up until age 25. Women 25 years and older should be screened for chlamydia and gonorrhea if at high risk. Screening for hepatitis C: All adults ages 18 to 79 should get a one-time test for hepatitis C. people should be screened at every . Screening for human immunodeficiency virus (HIV): All people ages 15 to 65 should get a one-time test for HIV. Depending on your lifestyle and medical history, you may also need to be screened for infections such as syphilis and HIV, as well as other infections. PHYSICAL EXAM All adults should visit their provider from time to time, even if they are healthy. The purpose of these visits is to: Screen for disease Assess your risk of future medical problems Encourage a healthy lifestyle Update your vaccinations and other preventive care services Maintain a relationship with a provider in case of an illness Your height, weight, and BMI should be checked at every exam. During your exam, your provider may ask you about: Depression and anxiety Diet and exercise Alcohol and tobacco use Safety issues, such as using seat belts, smoke detectors, and intimate partner violence Your medicines and risk for interactions SKIN SELF-EXAM Your provider may check your skin for signs of skin cancer, especially if you're at high risk, such as if you: Have had skin cancer before Have close relatives with skin cancer Have a weakened immune system OTHER SCREENING Talk with your provider about colon cancer screening if you have a strong family history of colon cancer or polyps, or if you have had inflammatory bowel disease or polyps yourself. Routine bone density screening of women under 40 is not recommended.
--- OUTSIDE RECORDS SUMMARY | 2025-01-06 14:27 | XMS_ITS | Encounter Summary ---
Author Organization [facility] Address [address] [place] [address] Phone Care Team Providers Care Assemblyman Or Woman Name Role Phone Chantale Garcia MD Unavailable [phone] Becca Aragon TINTER PHOTOGRAPH Unavailable [phone] Demarcus Lozano MD Unavailable [phone] Liz Graham TINTER PHOTOGRAPH Unavailable [phone] Wero Craven CANAL EQUIPMENT MECHANIC Unavailable Vikram Messina MD Unavailable [phone] Bree Fall TINTER PHOTOGRAPH Unavailable [phone] Chantale Garcia MD Primary Care Provider + [phone] Saroj Arndt MD Primary Care Provider + [phone] Ike Barrett MD Primary Care Provider [phone] Encounter Details Date Type Department Care Team (Late st Contact Info) Description 04/03/2017 Transcribe Orders [facility] [address] [place] [address] Yen Calderon APRN Encounter for therapeutic drug monitoring (Primary Dx) Social History Tobacco Use Types Packs/Day Years Used Date Smoking Tobacco: Never Smokeless Tobacco: Never Alcohol Use Standard Drinks/Week Comments No 0 (1 standard drink = 0.6 oz pur e alcohol) Comments Yes Sex and Gender Information Value Date Recorded Sex Assigned at Female 05/09/2019 4:06 PM EDT Legal Sex Female 9:05 PM EDT Gender Identity Female 05/09/2019 4:06 PM EDT Sexual Orientation Straight 04/25/2021 7: 36 PM EST 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 Not on file documented as of this encounter Plan of Treatment Not on file documented as of this encounter Results * TSH (04/03/2017 8:10 AM EST) TSH 2.06 0.27 - 4.20 uIU/mL [facility] Blood 04/03/2017 8:10 AM EST 04/03/2017 8:15 AM EST Yen Calderon CLOTHING DESIGNER LAB BLOOD BKR ORDERAB LES Final Result Performing Organization Address [facility]/ZIP Co de Phone Number [address] [address] * Prolactin (04/03/2017 8:10 AM EST) PROLACTIN 17.8 4.8 - 23.3 ng/mL [facility] Blood 04/03/2017 8:10 AM EST 04/03/2017 8:15 AM EST Yen Calderon CLOTHING DESIGNER LAB BLOOD BKR ORDERAB LES Final Result Performing Organization Address City/[facility]/ZIP Co de Phone Number [address] [address] * (ABNORMAL) Lipid panel (04/03/2017 8:10 AM EST) HDL 58 mg/dL [facility] Comment: Interpretation: Risk Level Females Decreased >55mg/dL Average 50-55 mg/dL Increased <50 mg/dL CHOLESTEROL 170 0 - 240 mg/dL [facility] TRIGLYCERIDES 44 30 - 160 mg/dL [facility] LDL 103 50 - 129 mg/dL [facility] Comment: LDL levels in terms of risk for coronary heart disease: <100 mg/dL: Optimal 100-129 mg/dL: Near or above optimal 130-159 mg/dL: Borderline high 160-189 mg/dL: High >190 mg/dL: Very High CARDIAC RISK RATIO 2.9(L) 3.3 - 4.4 C [facility] Blood 04/03/2017 8:10 AM EST 04/03/2017 8:15 AM EST Yen Calderon CLOTHING DESIGNER LAB BLOOD BKR ORDERAB LES Final Result Performing Organization Address City/[facility]/ZIP Co de Phone Number [address] [address] * Glucose, fasting (04/03/2017 8:10 AM EST) Pathologist [facility] FASTING GLUCOSE 82 70 - 110 mg/dL [facility] Blood 04/03/2017 8:10 AM EST 04/03/2017 8:15 AM EST Yen Calderon APRN LAB BLOOD ORDERABLES Final Result Performing Organization Address [facility] de Phone Number [address] [address] documented in this encounter Visit Diagnoses Diagnosis Encounter for therapeutic drug monitoring- Primary documented in this encounter Additional Health Concerns Infection Onset Date Last Indicated Resolved Time CoV-Risk 10/11/2019 10/12/2019 10/25/2019 1:23 AM EDT documented as of this encounter Care Teams Assemblyman Or Woman Relationship Specialty Start Date End Date Chantale Garcia MD [address] [place] [address], [address] [address] PCP - General 03/02/17 01/02/18 Saroj Arndt MD [address] [place] [address], [address] [place] [address] PCP - General Family Medicine 01/03/18 03/20/19 Ike Barrett MD [address] [facility] [address] [place] [address] [email or web address] PCP - General 03/21/19 Chantale Garcia MD [address] [place] [address], [address] [place] [address] Historical LMR Provider 12/17/16 Becca Aragon NP [address] [place] [address] Historical LMR Provider 12/17/16 03/06/21 Demarcus Lozano MD [address] [place] [address], [address] [place] [address] Historical LMR Provider 12/12/16 Liz Graham, TINTER PHOTOGRAPH [address] [place] [address] 2_[place] [address] [email or web address] Historical LMR Provider 12/17/16 01/02/18 Wero Craven, ASAD [address] [place] [address], [address] [place] [address] Historical LMR Provider 12/17/16 03/06/21 Vikram Messina MD [address] [place] [address], [address] [place] [address] Historical LMR Provider 12/17/16 01/02/18 Bree Fall NP [address] [place] [address] Historical LMR Provider 12/17/16 2 documented as of this encounter Additional Source Comments The information contained in this document represents components of the legal health record. It is not the complete legal health record.[facility]
--- OUTSIDE RECORDS SUMMARY | 2025-01-06 14:27 | XMS_ITS | Encounter Summary ---
Author Organization [facility] Address [address] [place] [address] Phone Care Team Providers Care Test Borer Name Role Phone Becca Aragon SPOOL SANDER Unavailable [phone] Demarcus Lozano MD Unavailable [phone] Wero Craven BRICK BAKER Unavailable Bree Fall SPOOL SANDER Unavailable [phone] Ike Barrett MD Primary Care Provider [phone] Encounter Details Date Type Department Care Team (Late st Contact Info) Description 10/11/2019 Transcribe Orders Virtual Department [address] [place] [address] Savi Santamaria, LIZZIE [address] [place] [address] [place] [address] Sore throat (Primary Dx); Stuffy and runny nose; Exposure to SARS-associated coronavirus Social History Tobacco Use Types Packs/Day Years Used Date Smoking Tobacco: Never Smokeless Tobacco: Never Alcohol Use Standard Drinks/Week Comments Yes 0 (1 standard drink = 0.6 oz pur e alcohol) occ Comments No Sex and Gender Information Value Date Recorded Sex Assigned at Female 05/09/2019 4:06 PM EDT Legal Sex Female 9:05 PM EDT Gender Identity Female 05/09/2019 4:06 PM EDT Sexual Orientation Straight 04/25/2021 7: 36 PM EST 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 file Not on file documented as of this encounter Plan of Treatment Not on file documented as of this encounter Results * COVID-19 PCR Order (10/12/2019 11:34 AM EDT) Specimen Source NASOPHARYNGEAL SWAB (SPOOL SANDER) [facility] COVID Testing Status Sent to [facility] [place] [place] Micro Lab [facility] Other 10/12/2019 11:3 4 AM EDT 10/12/2019 1:12 PM EDT Savi Santamaria SPOOL SANDER LAB GENERAL ORDERABLES F inal Result [facility] [address] [place] [address] documented in this encounter Visit Diagnoses Diagnosis Sore throat- Primary Acute pharyngitis Stuffy and runny nose Other diseases of nasal cavity and sinuses Exposure to SARS-associated coronavirus documented in this encounter Additional Health Concerns Infection Onset Date Last Indicated Resolved Time CoV-Risk 10/11/2019 10/12/2019 10/25/2019 1:23 AM EDT documented as of this encounter Care Teams Test Borer Relationship Specialty Start Date End Date Ike Barrett MD [address] [facility] [address] [place] [address] [email or web address] PCP - General 03/21/19 Becca Aragon NP [address] [place] [address] [email or web address] Historical LMR Provider 12/17/16 03/06/21 Demarcus Lozano MD [address] [facility], [address] [place] [address] [email or web address] Historical LMR Provider 12/12/16 Wero Craven, ASAD [address] [facility], [address] [place] [address] [email or web address] Historical LMR Provider 12/17/16 03/06/21 Bree Fall NP [address] [place] [address] Historical LMR Provider 12/17/16 2 documented as of this encounter Additional Source Comments The information contained in this document represents components of the legal health record. It is not the complete legal health record.[facility]
--- OUTSIDE RECORDS SUMMARY | 2025-01-06 14:27 | XMS_ITS | Encounter Summary ---
Author Organization [facility] Address [address] [place] [address] Phone Care Team Providers Care Truck Bench Mechanic Name Role Phone Chantale Garcia MD Unavailable [phone] Becca Aragon STRUCTURAL TEST ENGINEER Unavailable [phone] Demarcus Lozano MD Unavailable [phone] Liz Graham STRUCTURAL TEST ENGINEER Unavailable Wero Craven FIELD CANE SCALE CLERK Unavailable [phone] Vikram Messina MD Unavailable [phone] Bree Fall STRUCTURAL TEST ENGINEER Unavailable [phone] Unknown, Unknown Primary Care Provider Chantale Fuller MD Primary Care Provider + [phone] Saroj Arndt MD Primary Care Provider + [phone] Ike Barrett MD Primary Care Provider [phone] Encounter Details Date Type Department Care Team (Late st Contact Info) Description 12/29/2016 Procedure Pass OR Admitting Dept - Virtual Department [address] [place] [id number] Social History Tobacco Use Types Packs/Day Years [...] 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 Not on file documented as of this encounter Plan of Treatment Not on file documented as of this encounter Visit Diagnoses Not on filedocumented in this encounter Additional Health Concerns Infection Onset Date Last Indicated Resolved Time CoV-Risk 10/11/2019 10/12/2019 10/25/2019 1:23 AM EDT documented as of this encounter Care Teams Truck Bench Mechanic Relationship Specialty Start Date End Date Unknown, Unknown, [address] [place] [address] PCP - General 12/23/16 03/01/17 Chantale Garcia MD [address] [place] [address], [address] [place] [address] PCP - General 03/02/17 01/02/18 Saroj Arndt MD [address] [place] [address] PCP - General Family Medicine 01/03/18 03/20/19 Ike Barrett MD [address] [place] [address] [email or web address] PCP - General 03/21/19 Chantale Garcia MD [address] [place] [address] Historical LMR Provider 12/17/16 Becca Aragon NP [address] [place] [address] Historical LMR Provider 12/17/16 03/06/21 Demarcus Lozano MD [address] [place] [address], [address] [place] [address] Historical LMR Provider 12/12/16 Liz Graham, STRUCTURAL TEST ENGINEER [address] [place] [address] 2_[place] [address] [email or web address] Historical LMR Provider 12/17/16 01/02/18 Wero Craven, ASAD [address] [place] [address], [address] [place] [address] Historical LMR Provider 12/17/16 03/06/21 Vikram Messina MD [address] [place] [address], [address] [place] [address] Historical LMR Provider 12/17/16 01/02/18 Bree Fall NP [address] [place] [address] Historical LMR Provider 12/17/16 2 documented as of this encounter Additional Source Comments The information contained in this document represents components of the legal health record. It is not the complete legal health record.[facility]
--- OUTSIDE RECORDS SUMMARY | 2025-01-06 14:28 | XMS_ITS | Encounter Summary ---
Author Organization [facility] Address [address] [facility] [address] [place] [address] Phone Care Team Providers Care Bag Machine Operator Name Role Phone Becca Aragon PERCHER Unavailable [phone] Demarcus Lozano MD Unavailable [phone] Wero Craven ACETYLENE TORCH BURNER Unavailable [phone] Bree Fall PERCHER Unavailable [phone] Ike Barrett MD Primary Care Provider [phone] Encounter Details Date Type Department Care Team (Late st Contact Info) Description 10/06/2020 Ancillary Orders [facility] [address] [place] [address] Demarcus Lozano MD [address] [address] [email or web address] with IUD in place, antepartum Social History Tobacco Use Types Packs/Day Years [...] 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 The ovaries appear normal with a left sided corpus luteal cyst. The IUD is not visualized on today's exam. Recommend clinical correlation. Narrative 10/07/2020 12:33 PM EDT INDICATION: Positive HPT with IUD Exam Date: 10/06/2020 Last Menstrual Period: Unknown Ultrasound Age: 6w4d Estimated Delivery by Ultrasound Age: 0405/28/2021 DESCRIPTION: Yolk Sac: Seen Gestational Sac: Seen Cardiac Activity: Seen Embryo: Seen Number: 1 Gestational Sac Location: Fundal Cul de Sac Fluid: None FIRST TRIMESTER SCAN: Single live IUP = 6w4d CRL = 6.49 mm with FHR = 118 bpm. Yolk sac = 2.02 mm No evidence of Kyleena IUD is seen. Cervical length = 3.56 cm Bilateral ovaries appear grossly normal with a left CLC noted. No adnexal masses seen. Transvaginal and transabdominal ultrasound was performed. Procedure Note Demarcus Lozano MD - 10/07/2020 INDICATION: Positive HPT with IUD Exam Date: 10/06/2020 Last Menstrual Period: Unknown Ultrasound Age: 6w4d Estimated Delivery by Ultrasound Age: 0405/28/2021 DESCRIPTION: Yolk Sac: Seen Gestational Sac: Seen Cardiac Activity: Seen Embryo: Seen Number: 1 Gestational Sac Location: Fundal Cul de Sac Fluid: None FIRST TRIMESTER SCAN: Single live IUP = 6w4d CRL = 6.49 mm with FHR = 118 bpm. Yolk sac = 2.02 mm No evidence of Kyleena IUD is seen. Cervical length = 3.56 cm Bilateral ovaries appear grossly normal with a left CLC noted. No adnexalmasses seen. Transvaginal and transabdominal ultrasound was performed. IMPRESSION: Single live IUP with CRL measurements consistent with 6w4d and an ROSANNE ofApril 2021. The ovaries appear normal with a left sided corpus lutealcyst. The IUD is not visualized on today's exam. Recommend clinicalcorrelation. us Demarcus Lozano MD IMG US OBSTETRIC Final Result documented in this encounter Visit Diagnoses Diagnosis with IUD in place, antepartum with IUD in place, antepartum documented in this encounter Care Teams Bag Machine Operator Relationship Specialty Start Date End Date Ike Barrett MD [address] [place] [address] [email or web address] PCP - General 03/21/19 Becca Aragon NP [address] [place] [address] [email or web address] Historical LMR Provider 12/17/16 03/06/21 Demarcus Lozano MD [address] [place] [address], [address] [place] [address] Historical LMR Provider 12/12/16 Wero Craven, ACETYLENE TORCH BURNER [address] [place] [address], [address] [place] [address] Historical LMR Provider 12/17/16 03/06/21 Bree Fall NP [address] [place] [address] Historical LMR Provider 12/17/16 2 documented as of this encounter Additional Source Comments The information contained in this document represents components of the legal health record. It is not the complete legal health record.[facility]
--- OUTSIDE RECORDS SUMMARY | 2025-01-06 14:28 | XMS_ITS | Clinical Summary ---
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 Active acetaminophen (TYLENOL) 325 mg tablet Take 3 tablets (975 mg total) by mouth every 6 (six) hours as needed for mild pain (fever greater than 38.4 degrees C). 0 04/10/2019 Active ibuprofen (ADVIL,MOTRIN) 200 MG tablet Take 3 tablets (600 mg total) by mouth every 6 (six) hours as needed. 04/10/2019 Active dextroamphetami ne-amphetamine (ADDERALL) 30 mg Tab tablet Take 30 mg by mouth 3 (three) times a day. Active labetaloL (TRANDATE) 100 MG tablet 08/12/2021 Active vits96/iron fum/folic ( VITAMINS WITH FERROUS FUM-FA) 27 mg iron- 800 mcg Tab Take 1 tablet by mouth daily. Active norethindrone (MICRONOR) 0.35 mg tablet Take 1 tablet (0.35 mg total) by mouth daily. Micronor 1 tab po QD 84 tablet 3 05/03/2023 Active Active Problems Problem Noted Date Diagnosed Date Other social stressor 05/03/2023 Assessment & Plan (05/03/2023 3:50 PM EST): Therapy referral placed Currently going through separation control counseling 10/19/2020 Assessment & Plan (05/03/2023 3:51 PM EST): Recommended avoiding estrogen due to h/o HTN Reviewed options and she wants to try POP Assessment & Plan (11/02/2020 10:53 AM EDT): Pt had been planning Nexplanon but now is concerned about weight gain as a side effect with Nexplanon. Discussed options - she would like to take OCP Rx OCP, ok to start this week Assessment & Plan (10/19/2020 8:44 AM EDT): -Discussed indications of nexplanon. Nexplanon is a single implant/katy approx. 4cm long and 2mm in diameter that gets inserted right underneath the surface of the arm. It is a progesterone only BC. It works by thickening cervical mucus which prevents normal sperm transport and it inhibits ovulation. It has been approved for 3 yrs, but evidence suggests effective for up to 5 yrs. Common Side effects including procedure related side effects includes s/sx of infection, bleeding from the insertion site, arm soreness and/or bruising. Other SE include unpredictable/irregular menstrual bleeding frequent and may persist, but usually bleeding is light and well tolerated, amenorrhea/oligomenorrhea. Common side effects generally resolve in 4months. May have irregular bleeding for up to 4-6 months after insertion. If this is becoming bothersome or is an unacceptable side effect, call and schedule an appointment. Use back up plan such as condoms for 7days after insertion. May use ibuprofen for pain or discomfort as needed. May also apply ice to the area for the first 24 hours. Discussed using condoms for STI protection. Nexplanon does not protect against STI. Rubella non-immune status, antepartum 10/18/2018 Overview (10/18/2018): Equivocal. Offer MMR pp Assessment & Plan (04/10/2019 8:00 AM EST): MMR to be administered today prior to discharge. Mild anemia 01/23/2018 Overview (01/23/2018): 01/23/18 H/H 10.6/32.1 Attention deficit disorder (ADD) without hyperac tivity 12/27/2016 Overview (10/03/2018): 09/22/17 Currently taking Adderall at half dose. Is not planning to stop completely, only takes it at work on the weekends Assessment & Plan (01/07/2019 10:52 AM EST): Continues to feel stable on 30mg Adderall daily. Rarely uses the 0.5mg lorazepam for sleep - perhaps twice in past month. I have suggested she try 25-50 mg benedryl at hs, prn. Assessment & Plan (09/04/2017 10:17 AM EDT): Braydon sees Heide Calderon NP for therapy/med management. They plan to taper Adderall during . Bipolar disorder 12/27/2016 Overview (01/07/2019): Dx age 17. Not currently on meds. Clinical RN specialist she has seen in past is not on current insurance. Had anxiety after last preg. During currently mood has been good, others around her agree. No anxiety or depr currently. Assessment & Plan (01/07/2019 10:39 AM EST): Not currently on meds. Clinical RN specialist she has seen in past is not on current insurance. Had anxiety after last preg. During currently mood has been good, others around her agree. No anxiety or depr currently. Depression 12/27/2016 Resolved Problems Problem Noted Date Diagnosed Date Resolved Date Medical 10/12/2020 05/03/2023 Assessment & Plan (11/02/2020 10:51 AM EDT): Braydon is 2 weeks s/p medication . Took Mifeprex on 10/12/20 and took Misoprostol on the next day. On day #2 had significant bleeding and passed tissue. Since then her bleeding has decreased but she has been concerned she is still . She has been feeling bloated and nipples are itchy. She has had sex several times since the termination all within the last week, concerned she could have gotten again. They used withdrawal method. She was supposed to have US today but it was not scheduled by frontload driver and now has been scheduled for 11/04. A: 2 weeks s/p Medical termination Some persistent s/s P: We discussed that US will likely confirm completed Med Ab and that symptoms can take a little time to resolve However in order to rule out new US will not help us Will check HCG quant today. If > 5, will repeat in 2 days to assess if level is rising or falling. Keep appt for US next week Follow up appt after to review Assessment & Plan (10/19/2020 8:43 AM EDT): -Medical instructions packet given -Offered Empty arms information Pt declines. -Pt interested in Nexplanon. Will like to discuss further during her f/u visit. 37 weeks gestation of 04/10/2019 11/25/2019 Assessment & Plan (04/10/2019 8:05 AM EST): Delivered, s/p induction PEC. Obesity affecting in third trimester 01/28/2019 11/25/2019 Constipation in in second trimester 01/29/20 19 10/07/2020 Assessment & Plan (01/28/2019 10:17 AM EST): Pt to continue on colace. Dietary suggestions reviewed. Shelby Armstrong suggested. Vaginal bleeding in pregnanc y, first trimester 11/05/2018 12/10/2018 Assessment & Plan (11/05/2018 10:41 AM EDT): Light daily spotting from approx 12 weeks EGA. Still present at 15w1d but lessening. Denies pain. Spec exam wnl, no lesions or abnormal discharge. Pt advised to cont to monitor and report any increase or new onset of pain. Mental disorder in , antepartum, third trimester 10/03/2018 11/25/2019 Overview (01/28/2019): ADD - stable on adderall. Bipolar disorder in remission anxiety following first preg. 12/2108 recent change in insurance and unable to see therapist. Pt to discuss refills with pcp and seek care of new therapist. Dating criteria Childbirth Ed? Group PN care? * Rh A+ GC/Chlam 09/2018 neg/neg Tdap * Flu 01/07/19 Hgb * GTT * GBS 126 PPBC * screening - low risk NT and first trimester screen Body mass index is 35.4 kg/m . Assessment & Plan (04/10/2019 8:00 AM EST): Bipolar disorder remains in remission. Pt has felt well during the . Stable on Adderall. Pt states she had a 30mg dose day prior to admission. States she feels tired since delivery but fine without the Adderall. Prefers to discontinue at this time. States she did that with her first while and mood was fine. Pt is still working on finding new therapist/med prescriber and pcp. Both are not accepting her type of [employer] plan. Pt states her HOUSING DIRECTOR prescriber agreed to continue prescribing during . Pt states she uses lorazepam infrequently for sleep. Did take it night prior to admission. Have suggested discontinuing use and consideration of starting medication for anxiety/bipolar disorder if becoming symptomatic. Assessment & Plan (01/28/2019 10:14 AM EST): Pt notes good FM. Mood continues to be happy and stable. Continues on Adderall 30 mg daily. Has not been using lorazepam. Was initially using very infrequently 1 time or so per month for insomnia. Last visit insomnia discussed and pt plans to try benedryl prn. States she has been sleeping well and did not need to start. Pt will hold on lorazepam use in and call for suggestions if insomnia recurring. Pt states she has not yet made appt with new therapist, but previous nurse specialist has agreed to prescribe until new provider in place. She suggested to pt names of providers on pt's new insurance plan. Assessment & Plan (01/07/2019 10:48 AM EST): Fetus active. Counseled and received flu shot today. ADD - stable on adderall. Bipolar disorder in remission anxiety following first preg. 12/2108 recent change in insurance and unable to see therapist. Pt to discuss refills with pcp and seek care of new therapist. Assessment & Plan (11/05/2018 10:38 AM EDT): Doing well. Getting used to the idea of a closely spaced . Discussed normal labs, low-risk NT screening. Discussed and scheduled AFP, anatomy scan. Preeclampsia in period 09/21/2018 11/25/2019 Overview (03/19/2019): History of severe pre-eclampsia at 37 weeks after gestational hypertension, only criteria re severity was SBP 170; took labetalol several weeks post Basline HELLP labs, P/C ratio wnl Baby ASA at 12-14 wks Seen at 34+1 for flu-like symptoms 03/18/2019 in ED, noted to have mild range BP 140's-150's/70's-90's on observation in CBC Normal HELLP labs obtained Given history of severe pre-eclampsia and elevated BP at 34 weeks will give steroids for FLM and repeat in 24 hours Plan: Twice weekly testing Induction at 37 weeks. Assessment & Plan (04/10/2019 7:58 AM EST): Pt admitted for induction of labor gHTN. Pt asymptomatic. Has had normal labs - last done 04/01/19. Has been on low dose aspirin for the . Pt admitted 03/19/19 - elevated BP at 34 wks and at that time received course of steroids. Repeat PEC labs on admission normal. S/p induction with misoprostol and Pitocin. Uncomplicated . Continued with mild range pressures . 100 mg labetalol twice daily started 5 AM day of discharge. Patient insisting on need of discharge this morning. States she will sign out AMA if not discharged. Patient remains asymptomatic and blood pressure improved with dose of labetalol. Patient has home blood pressure cuff and will monitor 3 times daily BP. Continue on 100 mg labetalol twice daily. Follow-up BP check 04/12/2019. Assessment & Plan (04/01/2019 2:22 PM EST): Blood pressure is elevated again today but she has no symptoms. Will recheck labs today including urine protein creatinine ratio. She has appointments set up for . If no change in status, plan on cervidil Monday night with Pitocin on Monday. Signs and symptoms of preeclampsia reviewed. Assessment & Plan (03/25/2019 1:54 PM EST): She notes good movement. She denies any vaginal bleeding, LOF or regular contractions. Blood pressure today is normal and she has no symptoms of preeclampsia. Plan on repeat labs and continue with twice weekly testing. Will do GBS today. Assessment & Plan (03/22/2019 3:58 PM EST): BPs stable. Last blood work 03/18/2019 normal. BPP 8/8 today. Will continue with twice weekly testing and consider repeat blood work weekly or as needed prn sxs. Has received steroids. Assessment & Plan (03/19/2019 10:55 AM EST): She now has been diagnosed with gestational hypertension. Plan on twice weekly testing and weekly labs with induction at 37 weeks. She is to complete course of steroids today in case induction is needed before 37 weeks. Signs and symptoms of preeclampsia reviewed. She notes good movement. She denies any vaginal bleeding, LOF or regular contractions. Assessment & Plan (03/04/2019 1:34 PM EST): Blood pressures remain normal. Assessment & Plan (01/28/2019 10:10 AM EST): Pt continues on daily low dose aspirin. BP remains normal. Pt without s/sx PEC. Assessment & Plan (01/07/2019 10:35 AM EST): Taking the daily low dose aspirin. Having some dull HAs on top of head. These headaches feel like pt's regular tension/stress headaches when not preg. No visual changes. No swelling. Had headaches throughout last pregn. Finds caffeine and tylenol can help. Not sleeping well. Little one 9mos and wakes once a night. Assessment & Plan (11/05/2018 10:37 AM EDT): Discussed normal baseline labs. Rx for baby aspirin sent to pharmacy, she will begin today. Hypertension in , p reeclampsia, severe, delivered/ 05/06/2018 09/21/2018 Assessment & Plan (05/06/2018 10:34 AM EDT): Well controlled on labetalol 300mg bid. Follow up in 3wks. Plan to decrease to 150 mg bid (1/2 tab of currect 300mg) for 7 days prior to next visit. Plan f/u with pcp re: htn following completion of care. Normal intrauterine , antepartum 04/11/2018 04/13/2018 Decreased movement 04/06/201809/2018 Elevated blood pressure affe cting in third trimester, antepartum 03/27/2018 9 Encounter for supervision of normal first in third trimester 09/22/2017 11/25/2019 Overview (04/04/2019): Childbirth Ed? Group PN care? No Rh pos Tdap Yes Hgb 10.6 GTT 109 GBS neg PPBC * Preeclampsia, severe, third trimester 09/04/2017 09/21/2018 Overview (04/11/2018): Elevated readings in 09/22/17 Had visit with PCP - BP r/t Adderall use and has been better since she cut dose. PCP does not want to start BP meds till off Adderall completely. Normotensive at FOB today. 01/23/18- pt states she has no hx of HTN. BP remain stable. 04/11/18 On presentation to PSYCHIATRIC BP in severe range, will start magnesium sulfate for possible superimposed pre-E and treat BP with labetalol per protocol Assessment & Plan (04/13/2018 10:20 AM EST): Will continue Magnesium for 24 hours post- Assessment & Plan (12/21/2017 8:12 AM EDT): Normotensive today Assessment & Plan (09/04/2017 10:16 AM EDT): Braydon has had intermittent elevated blood pressure readings for quite some time, both here and at PCP. We discussed possible primary hypertension and need for prompt further evaluation and possible treatment given signifcantly elevated blood pressure today (170/120, repeat 148/108) and risks during . She will be seen by PCP in two days and by us in 1-2 weeks. Will also check TSH as that has been transiently mildly elevated in the past as well. Plan discussed with Dr. Otero. control counseling 12/27/2016 Assessment & Plan (12/27/2016 9:29 AM EDT): Contraceptive options reviewed including OCPs, patch, ring, Depo Provera, IUD, and Nexplanon. Discussed hormonal differences, anticipated bleeding pattern, and efficacy. Pt most interested in OCPs or the patch - pt will consider options so Rx can be provided on day of procedure. Decreased movements in third trimester 04/12/2018 Immunizations Immunization Administration Dates Next Due COVID-19 (Pre-12/19) Pfizer Vaccine, mRNA, PF 06/17/2020,05/27/2020 DTP 10/31/1990, 0,1989,1989 DTaP 09/08/1993 Hepatitis B 07/16/2003,10/23/2002,09/25/2002 Influenza Quadrivalent Prese rvative Free IM 01/07/2019,03/16/2018 Influenza, whole 01/01/2019 MMR 04/10/2019(Deferred: Patient Refused),07/12/1994,07/14/1990 Polio - OPV 09/08/1993, 1,1989,1989 Td (adult) 5 Lf Tetanus Toxo id, PF, Adsorbed 09/25/2002 Tdap 02/18/2019,03/02/2018,03/22/2010 Family History Medical History Relation Comments Colon cancer Maternal Grandmother of ketty betes Hyperlipidemia Mother Lung cancer Paternal Grandmother Relation Status Comments Father Alive Maternal Grandmother Mother Alive Paternal Grandmother Social History Tobacco Use Types Packs/Day Years Used Date Smoking Tobacco: Never Passive Smoke Exposure: Never Smokeless Tobacco: Never Alcohol Use Standard Drinks/Week Comments Yes 0 (1 standard drink = 0.6 oz pur e alcohol) 1-4 drinks 1 or 2 times a week Education Answer Date Recorded Are you interested in more education? Not on mayte e 06/24/2022 Are you concerned about learning? Not on file 06/24/2022 No 06/24/2022 No 06/24/2022 Digital Access Answer Date Recorded No 07/25/2022 No 07/25/2022 Reliable internet access at home? Not on file 07/25/2022 Device with a working camera? Not on file Comments No Sex and Gender Information Value Date Recorded Sex Assigned at Female 05/09/2019 4:06 PM EDT Legal Sex Female 9:05 PM EDT Gender Identity Female 05/09/2019 4:06 PM EDT Sexual Orientation Straight 04/25/2021 7: 36 PM EST Occupation Industry Job Start Date Job End Date [employer] Not on file Not on file Not on file Last Filed Vital Signs Vital Sign Reading Time Taken Comments Blood Pressure 124/82 05/03/2023 3:02 PM EST Pulse 95 04/25/2021 8:35 PM EST Temperature 36.2 C (97.2 F) 04/25/2021 7:37 PM EST Respiratory Rate 18 04/25/2021 7:37 PM EST Oxygen Saturation 98% 04/25/2021 8:35 PM EST Inhaled Oxygen Concentration - - Weight 71.7 kg (158 lb) 05/03/2023 3:02 PM EST Height 152.4 cm (5') 05/03/2023 3:02 PM EST Body Mass Index 30.86 05/03/2023 3:02 PM EST Plan of Treatment Health Maintenance Due Date Last Done Comments DEPRESSION SCREENING 2001 IUD 05/19/2024 05/20/2019 INFLUENZA VACCINE (#1) 2024 9, 01/01/2019, 03/16/2018 COVID-19 VACCINE ( season) 2024 03/01/2021, 06/17/2020, 05/27/2020 SCREENING FOR DIABETES 09/08/2025 09/08/2022 PAP SMEAR 05/02/2028 05/03/2023, 08/28, 09/22/2017 Adult Td,Tdap Booster 02/18/2029 02/18/2019 , 03/02/2018, 03/22/2010, Additional history exists IPV VACCINES Completed 09/08/1993, 0 05/1990, 1989, Additional history exists HEPATITIS C SCREENING Completed 05/03/2023 , 05/03/2023, 04/25/2021, Additional history exists HIV ONE-TIME SCREENING (18-65 YEARS) Completed 05/03/2023 SMOKING STATUS SCREENING (Once After 26 Yrs) Completed 05/03/2023 HEPATITIS A VACCINES Aged Out No long er eligible based on patient's age to complete this topic HIB VACCINES Aged Out No longer eligi ble based on patient's age to complete this topic MENINGOCOCCAL VACCINES (ACWY) Aged Out No longer eligible based on patient's age to complete this topic MENINGOCOCCAL VACCINES (B) Aged Out N o longer eligible based on patient's age to complete this topic PNEUMOCOCCAL VACCINES (0-49 years) Aged Out No longer eligible based on patient's age to complete this topic Medical Devices Not on file Procedures Procedure Name Priority Date/Time Associated Diagnosis Comments HEPATITIS C ANTIBODY, QUALITATIVE Routine 05/03/2023 4:11 PM EST Routine screening for STI (sexually transmitted infection) PAP TEST Routine 05/03/2023 12:00 AM EST from Last 3 Months or Most Recently Relevant to Health Maintenance Results * Hepatitis C antibody, qualitative (05/03/2023 4:11 PM EST) HCV NON-REACTIV E NON-REACTI VE [facility] Blood 05/03/2023 4:11 PM EST 05/03/2023 4:15 PM EST us Sherice Dai CN LAB BLOOD BKR ORDERABLES Final Result [address] [id number] * Pap Test (05/03/2023 12:00 AM EST) Report [address] [address] Vice Investigator: Barbara Lutz MD ASSISTANT PROFESSOR OF ECONOMICS Cytology Report FINAL DIAGNOSIS A. PAP SMEAR (SUREPATH) CE: SPECIMEN ADEQUACY: Satisfactory for evaluation; transformation zone present. INTERPRETATION: NEGATIVE FOR INTRAEPITHELIAL LESION OR MALIGNANCY. Electronically Signed Out By: CJ Lizama(ASCP) The Pap test is a screening test primarily for squamous cancers and precursors and has associated false-negative and false-positive results. New technologies such as liquid-based preparations may decrease but will not eliminate all false-negative results. Regular sampling and follow-up of unexplained clinical signs and symptoms are recommended to minimize false negative results. PROCEDURES/ADDENDA HPV Testing (Requested) Ordered Date: 05/04/2023 A. PAP SMEAR (SUREPATH) CE: Human Papilloma Virus Test NEGATIVE for high-risk Human Papilloma Virus types 16, 18, 45 and the Other high risk probe set (Includes 31, 33, 35, 39, 51, 52, 56, 58, 59, 66, 68) Note: Testing performed by [employer] HR-HPV analysis. Clinical correlation is advised. This HPV test was performed at [facility], [address] [place] [address]. This test has been FDA approved for both SurePath and ThinPrep cervical cytology specimens. The accuracy and precision of this test for all other specimen sources has been verified in the Cytopathology Laboratory of the [facility] and has not been cleared or approved by the U.S. Food and Drug Administration. Clinical correlation is advised. CLINICAL HISTORY Date of Last Menstrual Period: 04-07-2023 Contraceptive History: BCPs Other Clinical Conditions: Screening Pap SPECIMEN SOURCE A: PAP SMEAR (SUREPATH) CE Patient Name: BRAYDON RIVERA : 1990 (Age: 33) Sex: F Institution: [facility] Location: [facility] Date of Collection: 05/03/2023 Date of Reported: 05/11/2023 14:44 Results to: Sherice Dai [facility] Final Diagnosis A. PAP SMEAR (SUREPATH) CE: SPECIMEN ADEQUACY: Satisfactory for evaluation; transformation zone present. INTERPRETATION: NEGATIVE FOR INTRAEPITHELIAL LESION OR MALIGNANCY. [facility] Results\Inter pretation A. PAP SMEAR (SUREPATH) CE: Human Papilloma Virus TestNEGATIVE for high-risk Human Papilloma Virus types 16, 18, 45 and the Other high risk probe set (Includes 31, 33, 35, 39, 51, 52, 56, 58, 59, 66, 68)Note: Testing performed by [employer] HR-HPV analysis. Clinical correlation is advised. This HPV test was performed at [facility], [address] [place] [address]. This test has been FDA approved for both SurePath and ThinPrep cervical cytology specimens. The accuracy and precision of this test for all other specimen sources has been verified in the Cytopathology Laboratory of the [facility] and has not been cleared or approved by the U.S. Food and Drug Administration. Clinical correlation is advised. 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 04/17/2018 8:00 AM PROXY MOLST 04/16/2018 4:08 PM * Full Code (Presumed) (Latest Code Status on File) Date Activated Date Inactivated Comments 04/08/2019 9:05 PM 04/10/2019 11:46 AM * Full Code (Presumed) Date Activated Date Inactivated Comments 04/07/2019 7:13 PM 04/08/2019 9:05 PM * Full Code (Presumed) Date Activated Date Inactivated Comments 03/18/2019 6:51 PM 03/18/2019 11:52 PM * Full Code (Presumed) Date Activated Date Inactivated Comments 04/13/2018 8:04 AM 04/15/2018 4:28 PM * Full Code (Presumed) Date Activated Date Inactivated Comments 04/11/2018 7:54 PM 04/13/2018 8:04 AM Care Teams Sailboat Captain Relationship Specialty Start Date End Date Ike Barrett MD [address] [facility] [address] [place] [address] [email or web address] PCP - General 03/21/19 Demarcus Lozano MD [address] [facility], [facility] [address] [place] [address] [email or web address] Historical LMR Provider 12/12/16 Additional Source Comments The information contained in this document represents components of the legal health record. It is not the complete legal health record.[facility]
== END 2025-01-06 15:09 | disposition home or self-care (01) ==
LOC: HO.HMCFM 12:01
PROVIDERS: PCP Nurse Practitioner Family; Visit Provider Nurse Practitioner Family
DX: Z00.01 Encounter for general adult medical examination with abnormal findings (principal); I31.39 Other pericardial effusion (noninflammatory); I10 Essential (primary) hypertension; F90.0 Attention-deficit hyperactivity disorder, predominantly inattentive type; B34.9 Viral infection, unspecified; R50.9 Fever, unspecified; F41.1 Generalized anxiety disorder; Z92.89 Personal history of other medical treatment

== ENCOUNTER → 2025-01-06 12:00 | Outpatient (BNVA) | payer MEDICAID, SELFPAY | PROVIDERS: PCP Nurse Practitioner Family; Visit Provider Nurse Practitioner Family | DX: Z00.01 Encounter for general adult medical examination with abnormal findings (principal); I10 Essential (primary) hypertension; F90.9 Attention-deficit hyperactivity disorder, unspecified type; I31.39 Other pericardial effusion (noninflammatory); R11.0 Nausea; F90.0 Attention-deficit hyperactivity disorder, predominantly inattentive type; F41.1 Generalized anxiety disorder; R68.89 Other general symptoms and signs; Z92.89 Personal history of other medical treatment | CPT/HCPCS: 99212; 99395 ==